=== PATIENT | female | born 1935 | race Caucasian/White ===

== ENCOUNTER 2016-12-04 08:27 | Inpatient (IN) | payer MEDICARE, MEDICAID ==
[2016-12-04] MEDS ORDERED: Albuterol/Ipratropium NEB.SOL* Albuterol 2.5 MG/Ipratropium 0.5 MG 3 ML INH ONE (08:44)
[2016-12-04 09:05] LABS: Hematocrit 43 % (35-47); Hemoglobin 14.6 g/dl (12.0-16.0); Mean Corpuscular HGB Conc 34 g/dl (31-36); Mean Corpuscular Hemoglobin 27 pg (27-31); Mean Corpuscular Volume 80 fL (80-97); Mean Platelet Volume 9 um3 (7.4-10.4); Red Blood Count 5.37 10^6/ul (4.0-5.4); Red Cell Distribution Width 16 % (10.5-15); White Blood Count 9.4 10^3/ul (3.5-10.8)
[2016-12-04 09:21] LABS: Albumin 3.6 g/dL (3.2-5.2); BUN/Creatinine Ratio 13.1 (8-20); C Reactive Protein 29.18 mg/L (< 5.00); EGFR African American 84.1 (>60); EGFR Non-African American 65.4 (>60); Total Bilirubin 0.6 mg/dL (0.2-1.0); Total Protein 6.6 g/dL (6.4-8.9)
--- NOTE | 2016-12-04 09:22 | RAD ---
Indication: Cough, shortness of breath, question pneumonia. Atrial fibrillation. History of tobacco use. Comparison: August 04, 2016 chest radiograph and September 28, 2015 CT. Technique: Upright AP 0905 hours Report: Mildly elevated lung volumes. Mild to moderate diffuse prominence of the interstitial markings without change. Negative for pleural effusion or pneumothorax. Mild cardiomegaly based on correlation with prior CT. Unremarkable central pulmonary vasculature and mediastinal contours. IMPRESSION: The constellation of findings is most consistent with chronic obstructive pulmonary disease given history of tobacco use. No acute cardiopulmonary process evident.
[2016-12-04 09:23] LABS: Troponin I 0.01 ng/mL (<0.04)
[2016-12-04] MEDS ORDERED: methylPREDNISolone 125 MG* 2 ML VIAL IV ONE (09:26)
[2016-12-04] MEDS: NS 0.9% 1000 ML* 3,000 ML IV ONE ×2 (09:50→10:57)
[2016-12-04 10:04] LABS: Urine Bilirubin Negative (Negative); Urine Glucose Negative (Negative); Urine Nitrite Negative (Negative)
[2016-12-04 10:20] LABS: Potassium 3.6 mmol/L (3.5-5.0)
[2016-12-04] MEDS ORDERED: Oseltamivir CAP* 75 MG PO ONE (10:23)
--- NOTE | 2016-12-04 10:44 | ED ---
Rudolph Samayoa Matthew, scribed for Sp Lama MD on 12/04/16 at 0845 . Complex/Multi-Sys Presentation - HPI Summary HPI Summary: A 81 y/o female presents to the ED by EMS for generalized weakness since a week ago. Associated symptoms include cough, chest pain w/ coughing, chills, sore throat, rhinorrhea, diarrhea 2-3 days, diffuse body aches, and headaches intermittently for the past week. The patient denies fever, vomiting, decreased appetite, abdominal pain, pedal edema, and recent Abx use. The patient states that she has chronic SOB. The patient is not on home oxygen and shes on blood thinners. The patient did not receive her flu shot this year. She lives in assisted living at [facility]. - History Of Current Complaint Chief Complaint: EDWeakness Time Seen by Provider: 12/04/16 08:30 Hx Obtained From: Patient Onset/Duration: Gradual Onset, Lasting Weeks - 1, Still Present Timing: Constant Severity Currently: Moderate Severity Initially: Moderate Location: Pain At: - Diffuse body aches Associated Signs And Symptoms: Positive: Weakness - general, Headache, Cough, Wheezing, Diarrhea - since 2-3 days ago, Other - Lightheadedness; Sore throat; Rhinorrhea; Chest pain w/ cough. Negative: Chest Pain, Vomiting, Abdominal Pain , Fever - Allergies/Home Medications Allergies/Adverse Reactions: Allergies Allergy/AdvReac Type Severity Reaction Status Date / Time Clonidine Allergy Unknown Verified 08/04/16 08:27 Reaction Details PMH/Surg Hx/FS Hx/Imm Hx Endocrine/Hematology History: Denies: Hx Anticoagulant Therapy, Hx Diabetes, Hx Thyroid Disease Cardiovascular History: Reports: Hx Hypercholesterolemia, Hx Hypertension, Other Cardiovascular Problems/Disorders - Afib Denies: Hx Pacemaker/ICD Respiratory History: Denies: Hx Asthma, Hx Chronic Obstructive Pulmonary Disease (COPD) GI History: Reports: Hx Diverticulosis, Hx Gastroesophageal Reflux Disease, Hx Obstructive Bowel, Other GI Disorders - Cdiff after bowel resection April 2012 History: Reports: Other Problems/Disorders - HX BLADDER FISTULA Denies: Hx Renal Disease Musculoskeletal History: Reports: Hx Back Problems, Hx Bursitis, Other Musculoskeletal History - bilat hip replacements Sensory History: Reports: Hx Contacts or Glasses, Hx Deafness - [place], Hx Hearing Aid, Hx Hearing Problem Opthamlomology History: Reports: Hx Contacts or Glasses Neurological History: Reports: Hx Dementia - dementia vs. 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 Infectious Disease History: Reports: Hx Clostridium Difficile Denies: Hx Hepatitis, Hx Human Immunodeficiency Virus (HIV), Traveled Outside the [place] in Last 30 Days - Family History Known Family History: Positive: Other - etOH abuse - brother - Social History Alcohol Use: None Hx Substance Use: No Substance Use Type: Reports: Prescribed Substance Use Comment - Amount & Last Used: Has overdosed on prescription narcotics Hx Tobacco Use: Yes Smoking Status (MU): Former Smoker Type: Cigarettes Amount Used/How Often: 2-3 Cigarettes/day Have You Smoked in the Last Year: No Review of Systems Positive: Chills, Fatigue. Negative: Fever Eyes: Negative ENT: Other - Rhinorrhea Positive: Sore Throat Positive: Chest Pain - w/ cough Positive: Shortness Of Breath - chronically , Cough Positive: Diarrhea. Negative: Abdominal Pain, Vomiting Genitourinary: Negative Positive: Myalgia - Diffuse bodyaches Skin: Negative Positive: Headache, Weakness - general Psychological: Normal All Other Systems Reviewed And Are Negative: Yes Physical Exam - Summary Physical Exam Summary: The patient is well-nourished in no acute distress and in no acute pain. The patient has decreased skin turgor. No cyanosis noted. HEENT: The head is normocephalic and atraumatic. The pupils are equal and reactive. The conjunctivae are clear and without drainage. Nares reveal rhinorrhea. Mouth reveals dry mucous membranes and the throat is without erythema and exudate. The external ears are intact. The ear canals are patent and without drainage. The tympanic membranes are intact. Neck is supple with full range of motion and non-tender. There are no carotid bruits. There is no neck vein distension. Respiratory: Chest is non-tender. The patient has diffuse wheezing. Cardiovascular: Heart is irregular rate and rhythm. There is no murmur or rub auscultated. Pulses are symmetrical and equal. Abdomen: The abdomen is soft and non-tender. There are normal bowel sounds heard in all four quadrants and there is no organomegaly palpated. Musculoskeletal: There is no back pain noted. Extremities are non-tender with full range of motion. Unable to assess cap refill. There is no calf tenderness elicited. Pitting edema of the LE Neurological: Patient is alert and oriented to person, place and time. The patient has symmetrical motor strength in all four extremities. Cranial nerves are grossly intact. Deep tendon reflexes are symmetrical and equal in all four extremities. Psychiatric: The patient has an appropriate affect and does not exhibit any anxiety or depression. Triage Information Reviewed: Yes Vital Signs On Initial Exam: Initial Vitals Temp Pulse Resp BP Pulse Ox 98.6 F 100 20 151/75 97 12/04/16 08:35 12/04/16 08:35 12/04/16 08:35 12/04/16 08:35 12/04/16 08:35 Vital Signs Reviewed: Yes Diagnostics - Vital Signs Vital Signs Temp Pulse Resp BP Pulse Ox 12/04/16 10:12 98 23 136/64 96 12/04/16 10:09 102 25 100 12/04/16 08:35 98.6 F 100 20 151/75 97 - Laboratory Lab Results: Lab Results 12/04/16 12/04/16 12/04/16 Range/Units 08:50 08:50 08:50 WBC 9.4 (3.5-10.8) 10^3/ul RBC 5.37 (4.0-5.4) 10^6/ul Hgb 14.6 (12.0-16.0) g/dl Hct 43 (35-47) % MCV 80 (80-97) fL MCH 27 (27-31) pg MCHC 34 (31-36) g/dl RDW 16 H (10.5-15) % Plt Count 173 (150-450) 10^3/ul MPV 9 (7.4-10.4) um3 Neut % (Auto) 87.6 H (38-83) % Lymph % (Auto) 5.1 L (25-47) % Delta % (Auto) 6.7 (1-9) % Eos % (Auto) 0.2 (0-6) % Baso % (Auto) 0.4 (0-2) % Absolute Neuts (auto) 8.3 H (1.5-7.7) 10^3/ul Absolute Lymphs (auto) 0.5 L (1.0-4.8) 10^3/ul Absolute Monos (auto) 0.6 (0-0.8) 10^3/ul Absolute Eos (auto) 0 (0-0.6) 10^3/ul Absolute Basos (auto) 0 (0-0.2) 10^3/ul Absolute Nucleated RBC 0 10^3/ul Nucleated RBC % 0 INR (Anticoag Therapy) 1.19 H (0.89-1.11) APTT 23.9 L (26.0-36.3) seconds Sodium 132 L (133-145) mmol/L Potassium 3.6 (3.5-5.0) mmol/L Chloride 100 L (101-111) mmol/L Carbon Dioxide 26 (22-32) mmol/L Anion Gap 6 (2-11) mmol/L BUN 11 (6-24) mg/dL Creatinine 0.84 (0.51-0.95) mg/dL Est GFR ( Amer) 84.1 (>60) Est GFR (Non-Af Amer) 65.4 (>60) BUN/Creatinine Ratio 13.1 (8-20) Glucose 84 (70-100) mg/dL Lactic Acid (0.5-2.0) mmol/L Calcium 9.0 (8.6-10.3) mg/dL Total Bilirubin 0.60 (0.2-1.0) mg/dL AST 40 H (13-39) U/L ALT 96 H (7-52) U/L Alkaline Phosphatase 69 (34-104) U/L Troponin I 0.01 (<0.04) ng/mL C-Reactive Protein 29.18 H (< 5.00) mg/L B-Natriuretic Peptide ( - 100) pg/mL Total Protein 6.6 (6.4-8.9) g/dL Albumin 3.6 (3.2-5.2) g/dL Globulin 3.0 (2-4) g/dL Albumin/Globulin Ratio 1.2 (1-3) Urine Color Urine Appearance Urine pH (5-9) Ur Specific [place] (1.010-1.030) Urine Protein (Negative) Urine Ketones (Negative) Urine Blood (Negative) Urine Nitrate (Negative) Urine Bilirubin (Negative) Urine Urobilinogen (Negative) Ur Leukocyte Esterase (Negative) Urine Glucose (Negative) Influenza A (Rapid) (Negative) Influenza B (Rapid) (Negative) 12/04/16 12/04/16 12/04/16 Range/Units 08:50 08:50 09:37 WBC (3.5-10.8) 10^3/ul RBC (4.0-5.4) 10^6/ul Hgb (12.0-16.0) g/dl Hct (35-47) % MCV (80-97) fL MCH (27-31) pg MCHC (31-36) g/dl RDW (10.5-15) % Plt Count (150-450) 10^3/ul MPV (7.4-10.4) um3 Neut % (Auto) (38-83) % Lymph % (Auto) (25-47) % Delta % (Auto) (1-9) % Eos % (Auto) (0-6) % Baso % (Auto) (0-2) % Absolute Neuts (auto) (1.5-7.7) 10^3/ul Absolute Lymphs (auto) (1.0-4.8) 10^3/ul Absolute Monos (auto) (0-0.8) 10^3/ul Absolute Eos (auto) (0-0.6) 10^3/ul Absolute Basos (auto) (0-0.2) 10^3/ul Absolute Nucleated RBC 10^3/ul Nucleated RBC % INR (Anticoag Therapy) (0.89-1.11) APTT (26.0-36.3) seconds Sodium (133-145) mmol/L Potassium (3.5-5.0) mmol/L Chloride (101-111) mmol/L Carbon Dioxide (22-32) mmol/L Anion Gap (2-11) mmol/L BUN (6-24) mg/dL Creatinine (0.51-0.95) mg/dL Est GFR ( Amer) (>60) Est GFR (Non-Af Amer) (>60) BUN/Creatinine Ratio (8-20) Glucose (70-100) mg/dL Lactic Acid 0.9 (0.5-2.0) mmol/L Calcium (8.6-10.3) mg/dL Total Bilirubin (0.2-1.0) mg/dL AST (13-39) U/L ALT (7-52) U/L Alkaline Phosphatase (34-104) U/L Troponin I (<0.04) ng/mL C-Reactive Protein (< 5.00) mg/L B-Natriuretic Peptide 77 ( - 100) pg/mL Total Protein (6.4-8.9) g/dL Albumin (3.2-5.2) g/dL Globulin (2-4) g/dL Albumin/Globulin Ratio (1-3) Urine Color Urine Appearance Urine pH (5-9) Ur Specific [place] (1.010-1.030) Urine Protein (Negative) Urine Ketones (Negative) Urine Blood (Negative) Urine Nitrate (Negative) Urine Bilirubin (Negative) Urine Urobilinogen (Negative) Ur Leukocyte Esterase (Negative) Urine Glucose (Negative) Influenza A (Rapid) Positive H (Negative) Influenza B (Rapid) Negative (Negative) 12/04/16 Range/Units 09:40 WBC (3.5-10.8) 10^3/ul RBC (4.0-5.4) 10^6/ul Hgb (12.0-16.0) g/dl Hct (35-47) % MCV (80-97) fL MCH (27-31) pg MCHC (31-36) g/dl RDW (10.5-15) % Plt Count (150-450) 10^3/ul MPV (7.4-10.4) um3 Neut % (Auto) (38-83) % Lymph % (Auto) (25-47) % Delta % (Auto) (1-9) % Eos % (Auto) (0-6) % Baso % (Auto) (0-2) % Absolute Neuts (auto) (1.5-7.7) 10^3/ul Absolute Lymphs (auto) (1.0-4.8) 10^3/ul Absolute Monos (auto) (0-0.8) 10^3/ul Absolute Eos (auto) (0-0.6) 10^3/ul Absolute Basos (auto) (0-0.2) 10^3/ul Absolute Nucleated RBC 10^3/ul Nucleated RBC % INR (Anticoag Therapy) (0.89-1.11) APTT (26.0-36.3) seconds Sodium (133-145) mmol/L Potassium (3.5-5.0) mmol/L Chloride (101-111) mmol/L Carbon Dioxide (22-32) mmol/L Anion Gap (2-11) mmol/L BUN (6-24) mg/dL Creatinine (0.51-0.95) mg/dL Est GFR ( Amer) (>60) Est GFR (Non-Af Amer) (>60) BUN/Creatinine Ratio (8-20) Glucose (70-100) mg/dL Lactic Acid (0.5-2.0) mmol/L Calcium (8.6-10.3) mg/dL Total Bilirubin (0.2-1.0) mg/dL AST (13-39) U/L ALT (7-52) U/L Alkaline Phosphatase (34-104) U/L Troponin I (<0.04) ng/mL C-Reactive Protein (< 5.00) mg/L B-Natriuretic Peptide ( - 100) pg/mL Total Protein (6.4-8.9) g/dL Albumin (3.2-5.2) g/dL Globulin (2-4) g/dL Albumin/Globulin Ratio (1-3) Urine Color Straw Urine Appearance Clear Urine pH 5.0 (5-9) Ur Specific [place] 1.005 L (1.010-1.030) Urine Protein Negative (Negative) Urine Ketones Trace H (Negative) Urine Blood Negative (Negative) Urine Nitrate Negative (Negative) Urine Bilirubin Negative (Negative) Urine Urobilinogen Negative (Negative) Ur Leukocyte Esterase Negative (Negative) Urine Glucose Negative (Negative) Influenza A (Rapid) (Negative) Influenza B (Rapid) (Negative) Result Diagrams: 12/04/16 08:50 12/04/16 08:50 Lab Statement: Any lab studies that have been ordered have been reviewed, and results considered in the medical decision making process. - Radiology CXR Xray Interpretation: No Acute Changes - IMPRESSION: The constellation of findings is most consistent with chronic obstructive pulmonary disease given history of tobacco use. No acute cardiopulmonary process evident. Radiology Interpretation Completed By: Radiologist - EKG 08:46 Cardiac Rate: Tachycardia - 102 bpm EKG Rhythm: Atrial Fibrillation ST Segment: Non-Specific - in the lateral and inferior leads EKG Interpretation: Controlled Rate Re-Evaluation - Re-Evaluation First Eval Re-Evaluation Time: 10:23 Change: Unchanged Comment: The patient continues to have wheezing. Will consult the hospitalist for possible admission. Complex Multi-Symp Course/Dx Assessment/Plan: A 81 y/o female presents to the ED by EMS for generalized weakness since a week ago. Associated symptoms include cough, chest pain w/ coughing, chills, sore throat, rhinorrhea, diarrhea 2-3 days, diffuse body aches, and headaches intermittently for the past week. The patient denies fever , vomiting, decreased appetite, abdominal pain, pedal edema, and recent Abx use. Labs were reviewed. The patient tested positive for influenza A. CXR shows chronic obstructive pulmonary disease given history of tobacco use and no acute cardiopulmonary process evident. EKG shows AFib at 102 bpm with non-specific ST changes in the lateral and inferior leads. Discussed the case with Dr. Lucero who will admit the patient into his services. - Diagnoses Differential Diagnoses/HQI/PQRI: Metabolic Abnormality, Sepsis, Urinary Tract Infection, Other - copd, influenza, chronic pain, atrial fibrillation Provider Diagnoses: Dyspnea, Influenza, COPD (chronic obstructive pulmonary disease), Chronic pain - Physician Notifications Discussed Care Of Patient With: Dr. Lucero (Hospitalist) at 10:30 -- Notified of patient's history and will admit the patient into his services. Discharge - Discharge Plan Condition: Stable Disposition: ADMITTED TO [facility] documentation as recorded by the Rudolph lópez Matthew accurately reflects the service I personally performed and the decisions made by , Sp Lama MD.
[2016-12-04] MEDS ORDERED: Acetaminophen TAB* 325 MG PO PRN (11:28)
[2016-12-04] MEDS ORDERED: Ondansetron INJ* 2 MG/ML VIAL IV PRN (11:28)
[2016-12-04] MEDS ORDERED: NS 0.9% 1000 ML* 1,000 ML IV SCH (11:30)
[2016-12-04] MEDS ORDERED: Albuterol 2.5 MG/3 ML NEB.SOL* (0.083%) INH PRN (11:46)
[2016-12-04] MEDS: Albuterol/Ipratropium NEB.SOL* Albuterol 2.5 MG/Ipratropium 0.5 MG 3 ML INH SCH ×3 (12:28→21:40)
[2016-12-04] MEDS: Diltiazem TAB* 60 MG PO SCH ×2 (12:35→17:34)
[2016-12-04] MEDS: cefTRIAXone VIAL(*) 1,000 MG in NS 0.9% 50 ML* 50 ML IVPB SCH (12:37)
[2016-12-04] MEDS: Azithromycin IV(*) 500 MG in NS 0.9% 250 ML* 250 ML IVPB SCH (12:38)
--- NOTE | 2016-12-04 14:55 | RAD ---
Indication: LEFT knee pain post fall. Comparison: No relevant prior exams available on the [facility] PACS. Technique: AP and crosstable lateral views LEFT knee Report: Small suprapatellar joint effusion. Negative for fracture or malalignment. Chondrocalcinosis at the bilateral menisci. Negative for significant joint space narrowing. Diffuse soft tissue edema and skeletal muscle atrophy. IMPRESSION: Small joint effusion. Negative for fracture. 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
--- NOTE | 2016-12-04 15:10 | RAD ---
Indication: Pain following fall. Comparison: LEFT knee and ankle of the same date. Technique: AP and lateral views LEFT lower leg. Report: Bone density appears decreased throughout. No fracture evident. Chondrocalcinosis noted at the medial and lateral menisci as described in the dedicated knee report. Nonfocal soft tissue swelling. IMPRESSION: Negative for fracture.
--- NOTE | 2016-12-04 15:12 | RAD ---
Indication: Pain post fall. Comparison: No relevant prior exams available on the [facility] PACS. Technique: AP, and lateral views LEFT ankle. Report: Bone density appears decreased throughout. No fracture evident. The posterior margin of the calcaneal tuberosity is incompletely included in the [id number]. Normal articular alignment. Nonfocal soft tissue edema. IMPRESSION: Negative for fracture.
[2016-12-04] MEDS: Gabapentin CAP(*) 300 MG PO SCH ×3 (16:23→21:23)
[2016-12-04] MEDS: Venlafaxine EXT RELEASE CAP* 75 MG PO SCH (17:35)
--- NOTE | 2016-12-04 18:35 | RAD ---
INDICATION: LEFT lower extremity pain and edema. COMPARISON: May 14, 2010 TECHNIQUE: Santiago scale, color Doppler, and spectral analysis of the deep veins of the LEFT lower extremity. Vessel compression, phasicity, and augmentation assessed. REPORT: The LEFT common femoral, great saphenous, profunda femoral, femoral, popliteal, peroneal, and posterior tibial veins are patent. Patency of the contralateral common femoral vein documented. IMPRESSION: No evidence for LEFT lower extremity deep venous thrombosis.
--- NOTE | 2016-12-04 19:08 | HP ---
HISTORY AND PHYSICAL: DATE OF ADMISSION: 12/04/16 PRIMARY CARE PROVIDER: Dr. Merino. ATTENDING PHYSICIAN WHILE IN THE HOSPITAL: Jhon Lucero MD * (report dictated by Adam Rosen NP). CHIEF COMPLAINT: 1. Cough. 2. Rhinorrhea. 3. Sore throat. 4. Arthralgias. HISTORY OF PRESENT ILLNESS: Ms. Rider is a 81-year-old female patient who carries a history of SVT, chronic pain, in addition to this has a history of atrial fibrillation, former smoker, history of anxiety, depression, dementia, question of COPD, and hypertension. She comes into the ER today from [facility] as she says the last couple of days she has not been feeling herself, she has been feeling weak, she is feeling fatigued, tired. She has had generalized malaise. She has been having difficulty with pain. She is having chills off and on, weakness and pain all over. She had a cough that now is productive of green sputum. She says she just was not feeling well. She got up today and was very weak. There was concern at [facility]. She was sent to the hospital. She has no reported fever, but she came in and was evaluated in the ER. It was noted that she tested positive for the flu and because of this, the hospitalist service was asked to evaluate for admission. PAST MEDICAL HISTORY: Significant for: 1. SVT. 2. Chronic pain. 3. SBO. 4. Hypertension. 5. GERD. 6. Anxiety. 7. Depression. 8. Dementia. 9. AFib. 10. History of COPD. PAST SURGICAL HISTORY: 1. She has had a laparoscopic cholecystectomy. 2. Bilateral total hip arthroplasty. 3. Hysterectomy. 4. Exploratory laparotomy with lysis of adhesions x2. HOME MEDICATIONS: According to her list at [facility] include: 1. Systane eye gel, left eye, at bedtime as needed. 2. Guaifenesin 15 cc p.o. every 6 hours as needed. 3. Imodium 2 mg p.o. every 4 hours as needed. 4. Tylenol 650 mg p.o. every 4 hours as needed. 5. Senna 2 tabs p.o. at bedtime. 6. Remeron 7.5 mg p.o. at bedtime. 7. Neurontin 600 mg p.o. at bedtime. 8. Aricept 10 mg at bedtime. 9. Abilify 2 mg p.o. at bedtime. 10. Embeda 1 capsule p.o. b.i.d. 11. Oxycodone 10 mg p.o. every 6 hours. 12. Neurontin 300 mg p.o. t.i.d. 13. Xarelto 20 mg daily. 14. Famotidine 20 mg p.o. b.i.d. 15. Effexor 150 mg in the morning, 75 mg at night. 16. B12 at 1000 mcg p.o. daily. 17. Norvasc 5 mg daily. 18. Multivitamin 1 capsule p.o. b.i.d. 19. Wellbutrin 300 mg p.o. daily. 20. Diltiazem 180 mg p.o. daily. ALLERGIES TO MEDICATIONS: Include CLONIDINE. FAMILY HISTORY: Mother had CVA. Father had a history of CVA and COPD. SOCIAL HISTORY: She is a former smoker. Does not drink alcohol. Lives at [facility]. Surrogate decision maker is her daughter. REVIEW OF SYSTEMS: There is no documented fever. She denied having any significant weight change. There was no double vision. No ear discharge. There was rhinorrhea. There was sore throat. There was no chest pain. There is dyspnea on exertion. There was nausea with one episode of vomiting. No dysuria. No frequency. No loss of consciousness. No pruritus and no skin ulcerations. Review of 14 systems completed, all others negative. PHYSICAL EXAMINATION GENERAL: At this time, Ms. Rider is a 81-year-old female patient. She is chronically ill appearing. She is sitting in the ER stretcher. She does not appear to be in any acute distress. VITAL SIGNS: Blood pressure 136/64 with a pulse of 98, respirations 23, O2 sat 96%, and temperature 98.6. HEENT: Head: Atraumatic, normocephalic. Eyes: EOMs intact. Sclerae anicteric. Throat: Oral mucosa appears to be dry. No oropharyngeal erythema. NECK: Supple. LUNGS: She did have wheeze in the lower bases and rhonchi. She had equal diaphragmatic expansion. HEART: Sounds S1, S2. Irregularly irregular rate. No murmurs, rubs, or gallops. ABDOMEN: Soft, it was flat and nontender. Bowel sounds present. EXTREMITIES: Pulses 2+ throughout. She is able to move all 4 extremities, 5/5 strength. NEUROLOGIC: The patient is awake. She is alert and oriented x3. Tongue midline. Executive Assistant To President were equal. There were no gross focal deficits. SKIN: Grossly intact. LABORATORY DATA AND DIAGNOSTIC STUDIES: Today reveal a WBC of 9.4, RBC of 5.37 , hemoglobin 14.6, hematocrit of 43, platelet count 173. INR 1.19. PTT of 23.9. Sodium 132, potassium 3.6, chloride 100, bicarb 26, BUN 11, creatinine 0.84, glucose 84, lactic 0.9, calcium 9.0, total bili 0.6, AST 40, ALT 96, alk phos 69. Troponin 0.01. CRP of 29. Albumin of 3.6. Urine was negative with the exception that she had trace ketones. Rapid influenza was positive for influenza A. She had a chest x-ray obtained today and on my review, I did not appreciate any infiltrates. Radiology read it as constellation of findings most consistent with COPD given history of tobacco use. No acute cardiac process evident. She had an EKG obtained today, which showed atrial fibrillation and a rate of 107. She did have some depression in V4, 5, and 6 and also in leads 2 and 3, aVF. When I look back on her previous EKGs, this is similar. Old medical records were reviewed. ASSESSMENT AND PLAN: Ms. Rider is a 81-year-old female patient with multiple medical problems, coming into the ER today with complaints of cough, weakness, myalgia and on evaluation found to have influenza A. She will be admitted under inpatient status for: 1. Influenza A and I suspect this is probably the culprit of a majority of her symptoms. She is rhonchorous. In addition to this, does have some wheezing on exam, so I am going to put her on antibiotics as well because I am concerned that she would have a high potential for a bacterial infection on top of the flu , so I would like to go ahead and put her on antibiotics, Tamiflu, hydrate her, supportive care, and follow. 2. Chronic obstructive pulmonary disease with exacerbation: We will go ahead and put her on Dulera nebulizers around the clock for the time being. In addition to this, aggressive pulmonary toileting and I did put her on Rocephin and azithromycin. 3. Supraventricular tachycardia and history of atrial fibrillation: Her rate right now is in the 120s. She did not get diltiazem today. Because of the acute illness, I am not going to give her the extended release diltiazem. I gave her 60 mg q.6 of IR diltiazem with hold parameters. 4. Chronic pain: Continue medications as prescribed. 5. Small-bowel obstruction: Not an active issue. We will monitor. 6. Hypertension: Continue medications as prescribed. Blood pressure is in the 150s to 160s. We will continue to monitor. 7. Gastroesophageal reflux disease: Continue PPI therapy. 8. Anxiety and depression: Continue current medications. 9. Dementia: Supportive care. 10. DVT prophylaxis: She is on Xarelto. We will go ahead and continue this. 11. Fluids, electrolytes, and nutrition: She can have a heart healthy diet. 12. Code status: She wishes to be a DNR. She does have a DNR in the system. TIME SPENT: Time spent on the admission was 60 minutes; greater than half the time was spent [id number] with the patient obtaining my history and physical, other half of the time spent going over the plan of care with the patient and implementing plan of care. I did discuss the plan of care with my attending, Dr. Lucero; he is in agreement. ADAM ROSNE NP CC: Dr. Merino * [id number]/CPS #: [id number] [facility]
[2016-12-04] MEDS: Senna TAB PO SCH (21:20)
[2016-12-04] MEDS: Mirtazapine TAB* 15 MG PO SCH (21:20)
[2016-12-04] MEDS: Famotidine TAB* 20 MG PO SCH (21:20)
[2016-12-04] MEDS: Oseltamivir CAP* 75 MG PO SCH (21:20)
[2016-12-04] MEDS: Donepezil TAB* 5 MG PO SCH (21:21)
[2016-12-04] MEDS: ARIPiprazole TAB* 2 MG PO SCH (21:23)
[2016-12-04] MEDS: MORPHINE NALTREXONE PO SCH (21:24)
[2016-12-04] MEDS: Mometasone/Formoter 200/5 MDI INH SCH (21:42)
[2016-12-05] MEDS: Albuterol/Ipratropium NEB.SOL* Albuterol 2.5 MG/Ipratropium 0.5 MG 3 ML INH SCH ×6 (00:43→21:26)
[2016-12-05] MEDS: Diltiazem TAB* 60 MG PO SCH ×3 (00:52→13:06)
[2016-12-05] MEDS: Mometasone/Formoter 200/5 MDI INH SCH ×2 (07:34→21:30)
[2016-12-05 09:16] LABS: Hematocrit 42 % (35-47); Hemoglobin 13.9 g/dl (12.0-16.0); Mean Corpuscular HGB Conc 33 g/dl (31-36); Mean Corpuscular Hemoglobin 27 pg (27-31); Mean Corpuscular Volume 81 fL (80-97); Mean Platelet Volume 10 um3 (7.4-10.4); Red Blood Count 5.18 10^6/ul (4.0-5.4); Red Cell Distribution Width 17 % (10.5-15); White Blood Count 8.9 10^3/ul (3.5-10.8)
[2016-12-05] MEDS: buPROPion SR TAB.SR* 150 MG PO SCH (09:22)
[2016-12-05] MEDS: Venlafaxine EXT RELEASE CAP* 75 MG PO SCH ×2 (09:22→17:28)
[2016-12-05] MEDS: amLODIPine TAB* 5 MG PO SCH (09:23)
[2016-12-05] MEDS: Cyanocobalamin TAB* 500 MCG PO SCH (09:23)
[2016-12-05] MEDS: Gabapentin CAP(*) 300 MG PO SCH ×4 (09:23→21:55)
[2016-12-05] MEDS: Rivaroxaban TAB(*) 20 MG TAB PO SCH (09:23)
[2016-12-05] MEDS: Oseltamivir CAP* 75 MG PO SCH ×2 (09:23→21:56)
[2016-12-05] MEDS: Famotidine TAB* 20 MG PO SCH ×2 (09:23→21:55)
[2016-12-05] MEDS: MORPHINE NALTREXONE PO SCH ×2 (09:24→21:27)
[2016-12-05 09:33] LABS: BUN/Creatinine Ratio 12.1 (8-20); Blood Urea Nitrogen 7 mg/dL (6-24); CO2 Carbon Dioxide 27 mmol/L (22-32); Calcium 8.8 mg/dL (8.6-10.3); Chloride 101 mmol/L (101-111); EGFR Non-African American 100.3 (>60); Glucose 93 mg/dL (70-100); Sodium 139 mmol/L (133-145)
[2016-12-05] MEDS: oxyCODONE TAB* 5 MG TAB PO PRN (09:42)
[2016-12-05] MEDS: cefTRIAXone VIAL(*) 1,000 MG in NS 0.9% 50 ML* 50 ML IVPB SCH (11:27)
[2016-12-05] MEDS ORDERED: KCL 10 MEQ/50 ML IVPREMIX* 10 MEQ/50 ML BAG IV ONE (11:30)
[2016-12-05] MEDS ORDERED: Potassium Chlor TAB* 20 MEQ TAB.ER PO ONE (11:30)
[2016-12-05] MEDS: Azithromycin IV(*) 500 MG in NS 0.9% 250 ML* 250 ML IVPB SCH (12:03)
[2016-12-05] MEDS: Diltiazem CD CAP* 180 MG PO SCH (15:51)
--- NOTE | 2016-12-05 17:00 | PN ---
Subjective Date of Service: 12/05/16 Interval History: pt feels better. Denies SOB. C/o chronic R knee pain ever since her fall several months ago. Upset about need to stay one more day. Objective Active Medications: Acetaminophen (Tylenol Tab*) 650 mg PO Q4H PRN PRN Reason: FEVER/PAIN Albuterol (Ventolin 2.5 Mg/3 Ml Neb.Mitra*) 2.5 mg INH Q2H PRN PRN Reason: SOB/WHEEZING Albuterol/Ipratropium (Duoneb Neb.Mitra*) 1 neb INH Q4H DAJUAN Last Admin: 12/05/16 15:50 Dose: 1 neb Amlodipine Besylate (Norvasc Tab*) 5 mg PO DAILY [facility] Last Admin: 12/05/16 09:23 Dose: 5 mg Aripiprazole (Abilify Tab*) 2 mg PO BEDTIME [facility] Last Admin: 12/04/16 21:23 Dose: 2 mg Bupropion HCl (Wellbutrin Sr Tab*) 300 mg PO QAM [facility] Last Admin: 12/05/16 09:22 Dose: 300 mg Cyanocobalamin (Vitamin B12 Tab*) 1,000 mcg PO DAILY [facility] Last Admin: 12/05/16 09:23 Dose: 1,000 mcg Diltiazem HCl (Cardizem Cd Cap*) 180 mg PO DAILY [facility] Last Admin: 12/05/16 15:51 Dose: 180 mg Donepezil HCl (Aricept Tab*) 10 mg PO BEDTIME [facility] Last Admin: 12/04/16 21:21 Dose: 10 mg Famotidine (Pepcid Tab*) 20 mg PO BID [facility] Last Admin: 12/05/16 09:23 Dose: 20 mg Gabapentin (Neurontin Cap(*)) 300 mg PO TID [facility] Last Admin: 12/05/16 13:06 Dose: 300 mg Gabapentin (Neurontin Cap(*)) 600 mg PO BEDTIME [facility] Last Admin: 12/04/16 21:23 Dose: 600 mg Mirtazapine (Remeron Tab*) 7.5 mg PO BEDTIME [facility] Last Admin: 12/04/16 21:20 Dose: 7.5 mg Mometasone Furoate/Formoterol Fumar (Dulera 200/5 Mdi*) 2 puff INH BID [facility] Last Admin: 12/05/16 07:34 Dose: 2 puff (Morphine-Naltrexone [Embeda 20-0.8 Mg] 1 Cap) 1 cap PO BID [facility] Last Admin: 12/05/16 09:24 Dose: Not Given Ondansetron HCl (Zofran Inj*) 4 mg IV Q6H PRN PRN Reason: NAUSEA Oseltamivir Phosphate (Tamiflu Cap*) 75 mg PO BID [facility] Stop: 12/09/16 09:01 Last Admin: 12/05/16 09:23 Dose: 75 mg Oxycodone HCl (Roxycodone Tab*) 10 mg PO Q6H PRN PRN Reason: PAIN Last Admin: 12/05/16 09:42 Dose: 10 mg Prednisone (Deltasone Tab*) 50 mg PO DAILY [facility] Rivaroxaban (Xarelto (*)) 20 mg PO DAILY [facility] Last Admin: 12/05/16 09:23 Dose: 20 mg Senna (Senokot Tab*) 2 tab PO BEDTIME [facility] Last Admin: 12/04/16 21:20 Dose: 2 tab Venlafaxine HCl (Effexor Xr Cap*) 75 mg PO QPM [facility] Last Admin: 12/04/16 17:35 Dose: 75 mg Venlafaxine HCl (Effexor Xr Cap*) 150 mg PO QAM [facility] Last Admin: 12/05/16 09:22 Dose: 150 mg Vital Signs 12/04/16 12/04/16 12/04/16 18:07 18:23 20:00 Temperature Pulse Rate 95 Respiratory 18 17 20 Rate Blood Pressure (mmHg) O2 Sat by Pulse 93 96 Oximetry 12/04/16 12/04/16 12/04/16 20:02 21:23 21:43 Temperature 97.5 F Pulse Rate 89 94 Respiratory 16 18 20 Rate Blood Pressure 142/61 (mmHg) O2 Sat by Pulse 93 96 Oximetry 12/04/16 12/04/16 12/05/16 23:23 23:56 02:09 Temperature 98.5 F Pulse Rate 99 Respiratory 17 20 Rate Blood Pressure 144/75 (mmHg) O2 Sat by Pulse 100 96 Oximetry 12/05/16 12/05/16 12/05/16 04:03 07:14 07:38 Temperature 98.5 F 97.2 F Pulse Rate 92 75 85 Respiratory 20 18 16 Rate Blood Pressure 165/85 149/70 (mmHg) O2 Sat by Pulse 98 98 94 Oximetry 12/05/16 12/05/16 12/05/16 07:40 08:00 09:23 Temperature Pulse Rate 85 Respiratory 16 16 16 Rate Blood Pressure (mmHg) O2 Sat by Pulse 94 Oximetry 12/05/16 12/05/16 12/05/16 09:42 11:23 11:28 Temperature 97.7 F Pulse Rate 89 Respiratory 16 16 18 Rate Blood Pressure 130/73 (mmHg) O2 Sat by Pulse 96 Oximetry 12/05/16 12/05/16 12/05/16 11:39 11:42 13:06 Temperature Pulse Rate 86 Respiratory 14 16 16 Rate Blood Pressure (mmHg) O2 Sat by Pulse 98 Oximetry 12/05/16 12/05/16 12/05/16 15:06 15:30 15:53 Temperature 97.4 F Pulse Rate 79 88 Respiratory 16 18 16 Rate Blood Pressure 126/55 (mmHg) O2 Sat by Pulse 96 99 Oximetry 12/05/16 12/05/16 16:00 16:01 Temperature Pulse Rate 88 Respiratory 16 Rate Blood Pressure (mmHg) O2 Sat by Pulse 92 93 Oximetry Oxygen Devices in Use Now: None Appearance: 81 F in NAD, AAOx3, poor historian Eyes: No Scleral Icterus, PERRLA Ears/Nose/Mouth/Throat: NL Teeth, Lips, Gums, Mucous Membranes Moist Neck: NL Appearance and Movements; NL JVP, Trachea Midline Respiratory: Symmetrical Chest Expansion and Respiratory Effort, - - crackles at b/l bases and L mid lung. wheezing b/l mid lungs. Cardiovascular: - - irregular Abdominal: NL Sounds; No Tenderness; No Distention, No Hepatosplenomegaly Lymphatic: No Cervical Adenopathy Extremities: No Clubbing, Cyanosis, - - left knee with small effusion, nontender , no increased warmth Skin: No Nodules or Sclerosis Neurological: Alert and Oriented x 3, NL Muscle Strength and Tone Result Diagrams: 12/05/16 05:59 12/05/16 10:21 Additional Lab and Data: Lab Results 12/04/16 12/04/16 12/04/16 Range/Units 08:50 08:50 08:50 WBC 9.4 (3.5-10.8) 10^3/ul RBC 5.37 (4.0-5.4) 10^6/ul Hgb 14.6 (12.0-16.0) g/dl Hct 43 (35-47) % MCV 80 (80-97) fL MCH 27 (27-31) pg MCHC 34 (31-36) g/dl RDW 16 H (10.5-15) % Plt Count 173 (150-450) 10^3/ul MPV 9 (7.4-10.4) um3 Neut % (Auto) 87.6 H (38-83) % Lymph % (Auto) 5.1 L (25-47) % Pine % (Auto) 6.7 (1-9) % Eos % (Auto) 0.2 (0-6) % Baso % (Auto) 0.4 (0-2) % Absolute Neuts (auto) 8.3 H (1.5-7.7) 10^3/ul Absolute Lymphs (auto) 0.5 L (1.0-4.8) 10^3/ul Absolute Monos (auto) 0.6 (0-0.8) 10^3/ul Absolute Eos (auto) 0 (0-0.6) 10^3/ul Absolute Basos (auto) 0 (0-0.2) 10^3/ul Absolute Nucleated RBC 0 10^3/ul Nucleated RBC % 0 INR (Anticoag Therapy) 1.19 H (0.89-1.11) APTT 23.9 L (26.0-36.3) seconds Sodium 132 L (133-145) mmol/L Potassium 3.6 (3.5-5.0) mmol/L Chloride 100 L (101-111) mmol/L Carbon Dioxide 26 (22-32) mmol/L Anion Gap 6 (2-11) mmol/L BUN 11 (6-24) mg/dL Creatinine 0.84 (0.51-0.95) mg/dL Est GFR ( Amer) 84.1 (>60) Est GFR (Non-Af Amer) 65.4 (>60) BUN/Creatinine Ratio 13.1 (8-20) Glucose 84 (70-100) mg/dL Lactic Acid (0.5-2.0) mmol/L Calcium 9.0 (8.6-10.3) mg/dL Total Bilirubin 0.60 (0.2-1.0) mg/dL AST 40 H (13-39) U/L ALT 96 H (7-52) U/L Alkaline Phosphatase 69 (34-104) U/L Troponin I 0.01 (<0.04) ng/mL C-Reactive Protein 29.18 H (< 5.00) mg/L B-Natriuretic Peptide ( - 100) pg/mL Total Protein 6.6 (6.4-8.9) g/dL Albumin 3.6 (3.2-5.2) g/dL Globulin 3.0 (2-4) g/dL Albumin/Globulin Ratio 1.2 (1-3) Urine Color Urine Appearance Urine pH (5-9) Ur Specific [place] (1.010-1.030) Urine Protein (Negative) Urine Ketones (Negative) Urine Blood (Negative) Urine Nitrate (Negative) Urine Bilirubin (Negative) Urine Urobilinogen (Negative) Ur Leukocyte Esterase (Negative) Urine Glucose (Negative) Influenza A (Rapid) (Negative) Influenza B (Rapid) (Negative) 12/04/16 12/04/16 12/04/16 Range/Units 08:50 08:50 09:37 WBC (3.5-10.8) 10^3/ul RBC (4.0-5.4) 10^6/ul Hgb (12.0-16.0) g/dl Hct (35-47) % MCV (80-97) fL MCH (27-31) pg MCHC (31-36) g/dl RDW (10.5-15) % Plt Count (150-450) 10^3/ul MPV (7.4-10.4) um3 Neut % (Auto) (38-83) % Lymph % (Auto) (25-47) % [place] % (Auto) (1-9) % Eos % (Auto) (0-6) % Baso % (Auto) (0-2) % Absolute Neuts (auto) (1.5-7.7) 10^3/ul Absolute Lymphs (auto) (1.0-4.8) 10^3/ul Absolute Monos (auto) (0-0.8) 10^3/ul Absolute Eos (auto) (0-0.6) 10^3/ul Absolute Basos (auto) (0-0.2) 10^3/ul Absolute Nucleated RBC 10^3/ul Nucleated RBC % INR (Anticoag Therapy) (0.89-1.11) APTT (26.0-36.3) seconds Sodium (133-145) mmol/L Potassium (3.5-5.0) mmol/L Chloride (101-111) mmol/L Carbon Dioxide (22-32) mmol/L Anion Gap (2-11) mmol/L BUN (6-24) mg/dL Creatinine (0.51-0.95) mg/dL Est GFR ( Amer) (>60) Est GFR (Non-Af Amer) (>60) BUN/Creatinine Ratio (8-20) Glucose (70-100) mg/dL Lactic Acid 0.9 (0.5-2.0) mmol/L Calcium (8.6-10.3) mg/dL Total Bilirubin (0.2-1.0) mg/dL AST (13-39) U/L ALT (7-52) U/L Alkaline Phosphatase (34-104) U/L Troponin I (<0.04) ng/mL C-Reactive Protein (< 5.00) mg/L B-Natriuretic Peptide 77 ( - 100) pg/mL Total Protein (6.4-8.9) g/dL Albumin (3.2-5.2) g/dL Globulin (2-4) g/dL Albumin/Globulin Ratio (1-3) Urine Color Urine Appearance Urine pH (5-9) Ur Specific [place] (1.010-1.030) Urine Protein (Negative) Urine Ketones (Negative) Urine Blood (Negative) Urine Nitrate (Negative) Urine Bilirubin (Negative) Urine Urobilinogen (Negative) Ur Leukocyte Esterase (Negative) Urine Glucose (Negative) Influenza A (Rapid) Positive H (Negative) Influenza B (Rapid) Negative (Negative) 12/04/16 Range/Units 09:40 WBC (3.5-10.8) 10^3/ul RBC (4.0-5.4) 10^6/ul Hgb (12.0-16.0) g/dl Hct (35-47) % MCV (80-97) fL MCH (27-31) pg MCHC (31-36) g/dl RDW (10.5-15) % Plt Count (150-450) 10^3/ul MPV (7.4-10.4) um3 Neut % (Auto) (38-83) % Lymph % (Auto) (25-47) % [place] % (Auto) (1-9) % Eos % (Auto) (0-6) % Baso % (Auto) (0-2) % Absolute Neuts (auto) (1.5-7.7) 10^3/ul Absolute Lymphs (auto) (1.0-4.8) 10^3/ul Absolute Monos (auto) (0-0.8) 10^3/ul Absolute Eos (auto) (0-0.6) 10^3/ul Absolute Basos (auto) (0-0.2) 10^3/ul Absolute Nucleated RBC 10^3/ul Nucleated RBC % INR (Anticoag Therapy) (0.89-1.11) APTT (26.0-36.3) seconds Sodium (133-145) mmol/L Potassium (3.5-5.0) mmol/L Chloride (101-111) mmol/L Carbon Dioxide (22-32) mmol/L Anion Gap (2-11) mmol/L BUN (6-24) mg/dL Creatinine (0.51-0.95) mg/dL Est GFR ( Amer) (>60) Est GFR (Non-Af Amer) (>60) BUN/Creatinine Ratio (8-20) Glucose (70-100) mg/dL Lactic Acid (0.5-2.0) mmol/L Calcium (8.6-10.3) mg/dL Total Bilirubin (0.2-1.0) mg/dL AST (13-39) U/L ALT (7-52) U/L Alkaline Phosphatase (34-104) U/L Troponin I (<0.04) ng/mL C-Reactive Protein (< 5.00) mg/L B-Natriuretic Peptide ( - 100) pg/mL Total Protein (6.4-8.9) g/dL Albumin (3.2-5.2) g/dL Globulin (2-4) g/dL Albumin/Globulin Ratio (1-3) Urine Color Straw Urine Appearance Clear Urine pH 5.0 (5-9) Ur Specific [place] 1.005 L (1.010-1.030) Urine Protein Negative (Negative) Urine Ketones Trace H (Negative) Urine Blood Negative (Negative) Urine Nitrate Negative (Negative) Urine Bilirubin Negative (Negative) Urine Urobilinogen Negative (Negative) Ur Leukocyte Esterase Negative (Negative) Urine Glucose Negative (Negative) Influenza A (Rapid) (Negative) Influenza B (Rapid) (Negative) Assess/Plan/Problems-Billing Assessment: 81 yo F with h/o anxiety, chronic pain, COPD (not on inhalers or 02 at home), A. fib (on Xarelto), chronic pain presents with Influenza A and COPD exacerbation. - Patient Problems (1) Influenza A Comment: Cont Tamilfu (2) COPD exacerbation Comment: Will start Prednisone PO, cont inhalers. Still wheezing (3) Chronic pain Comment: cont oxycodone prn (4) Atrial fibrillation Comment: cont rivaroxaban at home, continue diltiazem. (5) DVT prophylaxis Comment: HSQ Status and Disposition: Inpatient.
[2016-12-05] MEDS: predniSONE TAB* 50 MG PO SCH (17:28)
[2016-12-05] MEDS: Mirtazapine TAB* 15 MG PO SCH (21:54)
[2016-12-05] MEDS: ARIPiprazole TAB* 2 MG PO SCH (21:54)
[2016-12-05] MEDS: Senna TAB PO SCH (21:55)
[2016-12-05] MEDS: Donepezil TAB* 5 MG PO SCH (21:55)
[2016-12-06] MEDS: Albuterol/Ipratropium NEB.SOL* Albuterol 2.5 MG/Ipratropium 0.5 MG 3 ML INH SCH ×4 (01:32→14:14)
[2016-12-06 05:19] LABS: BUN/Creatinine Ratio 19.1 (8-20); Calcium 9.3 mg/dL (8.6-10.3); EGFR African American 107.3 (>60); EGFR Non-African American 83.5 (>60)
[2016-12-06] MEDS: Omeprazole CAP* 20 MG PO SCH (05:45)
[2016-12-06] MEDS ORDERED: LORazepam INJ* 2 MG/ML 1 ML VIAL IV PUSH ONE (07:00)
[2016-12-06] MEDS: MORPHINE NALTREXONE PO SCH ×2 (08:32→23:14)
[2016-12-06] MEDS: Famotidine TAB* 20 MG PO SCH ×2 (08:39→22:04)
[2016-12-06] MEDS: Oseltamivir CAP* 75 MG PO SCH ×2 (08:39→22:00)
[2016-12-06] MEDS: Rivaroxaban TAB(*) 20 MG TAB PO SCH (08:40)
[2016-12-06] MEDS: buPROPion SR TAB.SR* 150 MG PO SCH (08:40)
[2016-12-06] MEDS: amLODIPine TAB* 5 MG PO SCH (08:40)
[2016-12-06] MEDS: Venlafaxine EXT RELEASE CAP* 75 MG PO SCH ×2 (08:40→17:33)
[2016-12-06] MEDS: predniSONE TAB* 50 MG PO SCH (08:40)
[2016-12-06] MEDS: Cyanocobalamin TAB* 500 MCG PO SCH (08:40)
[2016-12-06] MEDS: Diltiazem CD CAP* 180 MG PO SCH (08:40)
[2016-12-06] MEDS: Gabapentin CAP(*) 300 MG PO SCH ×4 (08:40→22:02)
[2016-12-06] MEDS: Mometasone/Formoter 200/5 MDI INH SCH ×2 (10:21→23:08)
--- NOTE | 2016-12-06 14:45 | PN ---
Subjective Date of Service: 12/06/16 Interval History: Pt is feeling better but still weak. She felt very shaky when she was up and walking earlier today. She denies SOB. Objective Active Medications: Acetaminophen (Tylenol Tab*) 650 mg PO Q4H PRN PRN Reason: FEVER/PAIN Albuterol (Ventolin 2.5 Mg/3 Ml Neb.Mitra*) 2.5 mg INH Q2H PRN PRN Reason: SOB/WHEEZING Albuterol (Ventolin 2.5 Mg/3 Ml Neb.Mitra*) 2.5 mg INH [id number] AWAKE COUNTS INCLUDE 234 BEDS AT [facility] Amlodipine Besylate (Norvasc Tab*) 5 mg PO DAILY COUNTS INCLUDE 234 BEDS AT [facility] Last Admin: 12/06/16 08:40 Dose: 5 mg Aripiprazole (Abilify Tab*) 2 mg PO BEDTIME COUNTS INCLUDE 234 BEDS AT [facility] Last Admin: 12/05/16 21:54 Dose: 2 mg Bupropion HCl (Wellbutrin Sr Tab*) 300 mg PO QAM COUNTS INCLUDE 234 BEDS AT [facility] Last Admin: 12/06/16 08:40 Dose: 300 mg Cyanocobalamin (Vitamin B12 Tab*) 1,000 mcg PO DAILY COUNTS INCLUDE 234 BEDS AT [facility] Last Admin: 12/06/16 08:40 Dose: 1,000 mcg Diltiazem HCl (Cardizem Cd Cap*) 180 mg PO DAILY COUNTS INCLUDE 234 BEDS AT [facility] Last Admin: 12/06/16 08:40 Dose: 180 mg Donepezil HCl (Aricept Tab*) 10 mg PO BEDTIME COUNTS INCLUDE 234 BEDS AT [facility] Last Admin: 12/05/16 21:55 Dose: 10 mg Famotidine (Pepcid Tab*) 20 mg PO BID COUNTS INCLUDE 234 BEDS AT [facility] Last Admin: 12/06/16 08:39 Dose: 20 mg Gabapentin (Neurontin Cap(*)) 300 mg PO TID COUNTS INCLUDE 234 BEDS AT [facility] Last Admin: 12/06/16 13:55 Dose: 300 mg Gabapentin (Neurontin Cap(*)) 600 mg PO BEDTIME COUNTS INCLUDE 234 BEDS AT [facility] Last Admin: 12/05/16 21:55 Dose: 600 mg Mirtazapine (Remeron Tab*) 7.5 mg PO BEDTIME COUNTS INCLUDE 234 BEDS AT [facility] Last Admin: 12/05/16 21:54 Dose: 7.5 mg Mometasone Furoate/Formoterol Fumar (Dulera 200/5 Mdi*) 2 puff INH BID COUNTS INCLUDE 234 BEDS AT [facility] Last Admin: 12/06/16 10:21 Dose: 2 puff (Morphine-Naltrexone [Embeda 20-0.8 Mg] 1 Cap) 1 cap PO BID COUNTS INCLUDE 234 BEDS AT [facility] Last Admin: 12/06/16 08:32 Dose: Not Given Omeprazole (Prilosec Cap*) 20 mg PO 0600 COUNTS INCLUDE 234 BEDS AT [facility] Last Admin: 12/06/16 05:45 Dose: 20 mg Ondansetron HCl (Zofran Inj*) 4 mg IV Q6H PRN PRN Reason: NAUSEA Oseltamivir Phosphate (Tamiflu Cap*) 75 mg PO BID COUNTS INCLUDE 234 BEDS AT [facility] Stop: 12/09/16 09:01 Last Admin: 12/06/16 08:39 Dose: 75 mg Oxycodone HCl (Roxycodone Tab*) 10 mg PO Q6H PRN PRN Reason: PAIN Last Admin: 12/05/16 09:42 Dose: 10 mg Potassium Chloride (Klor Con Er Tab*) 40 meq PO Q4H COUNTS INCLUDE 234 BEDS AT [facility] Stop: 12/06/16 18:46 Prednisone (Deltasone Tab*) 40 mg PO DAILY WITH MEAL COUNTS INCLUDE 234 BEDS AT THE [facility] Rivaroxaban (Xarelto (*)) 20 mg PO DAILY COUNTS INCLUDE 234 BEDS AT [facility] Last Admin: 12/06/16 08:40 Dose: 20 mg Senna (Senokot Tab*) 2 tab PO BEDTIME COUNTS INCLUDE 234 BEDS AT [facility] Last Admin: 12/05/16 21:55 Dose: 2 tab Venlafaxine HCl (Effexor Xr Cap*) 75 mg PO QPM COUNTS INCLUDE 234 BEDS AT [facility] Last Admin: 12/05/16 17:28 Dose: 75 mg Venlafaxine HCl (Effexor Xr Cap*) 150 mg PO QAM COUNTS INCLUDE 234 BEDS AT [facility] Last Admin: 12/06/16 08:40 Dose: 150 mg Vital Signs 12/05/16 12/05/16 12/05/16 15:06 15:30 15:53 Temperature 97.4 F Pulse Rate 79 88 Respiratory 16 18 16 Rate Blood Pressure 126/55 (mmHg) O2 Sat by Pulse 96 99 Oximetry 12/05/16 12/05/16 12/05/16 16:00 16:01 19:37 Temperature 97.4 F Pulse Rate 88 68 Respiratory 16 16 Rate Blood Pressure 125/78 (mmHg) O2 Sat by Pulse 92 93 97 Oximetry 12/05/16 12/05/16 12/05/16 20:00 21:31 21:55 Temperature Pulse Rate 90 Respiratory 18 20 16 Rate Blood Pressure (mmHg) O2 Sat by Pulse 97 96 Oximetry 12/05/16 12/06/1612/06/17 23:55 00:22 01:34 Temperature 98.3 F Pulse Rate 96 92 Respiratory 20 20 20 Rate Blood Pressure 135/76 (mmHg) O2 Sat by Pulse 98 94 Oximetry 12/06/16 12/06/16 12/06/16 03:37 05:11 07:15 Temperature 98.1 F Pulse Rate 96 95 Respiratory 20 20 20 Rate Blood Pressure 128/66 (mmHg) O2 Sat by Pulse 97 94 Oximetry 12/06/16 12/06/16 12/06/16 08:00 08:06 08:15 Temperature 98.1 F Pulse Rate 97 Respiratory 16 16 16 Rate Blood Pressure 136/83 (mmHg) O2 Sat by Pulse 100 100 Oximetry 12/06/16 12/06/16 12/06/16 08:40 10:23 10:24 Temperature Pulse Rate 97 97 Respiratory 16 16 16 Rate Blood Pressure (mmHg) O2 Sat by Pulse 100 100 Oximetry 12/06/16 12/06/16 12/06/16 11:33 13:55 14:15 Temperature 99.3 F Pulse Rate 96 96 Respiratory 16 18 18 Rate Blood Pressure 131/78 (mmHg) O2 Sat by Pulse 99 99 Oximetry Oxygen Devices in Use Now: None Appearance: Elderly female lying in bed, NAD Eyes: No Scleral Icterus Ears/Nose/Mouth/Throat: Mucous Membranes Moist Respiratory: Symmetrical Chest Expansion and Respiratory Effort, Clear to Auscultation Cardiovascular: NL Sounds; No Murmurs; No JVD, No Edema, - - mildly tachycardic , regular Abdominal: NL Sounds; No Tenderness; No Distention Extremities: No Clubbing, Cyanosis Skin: No Rash or Ulcers, No Nodules or Sclerosis Neurological: Alert and Oriented x 3 Result Diagrams: 12/05/16 05:59 12/06/16 04:25 Additional Lab and Data: Lab Results 12/04/16 12/04/16 12/04/16 Range/Units 08:50 08:50 08:50 WBC 9.4 (3.5-10.8) 10^3/ul RBC 5.37 (4.0-5.4) 10^6/ul Hgb 14.6 (12.0-16.0) g/dl Hct 43 (35-47) % MCV 80 (80-97) fL MCH 27 (27-31) pg MCHC 34 (31-36) g/dl RDW 16 H (10.5-15) % Plt Count 173 (150-450) 10^3/ul MPV 9 (7.4-10.4) um3 Neut % (Auto) 87.6 H (38-83) % Lymph % (Auto) 5.1 L (25-47) % [place] % (Auto) 6.7 (1-9) % Eos % (Auto) 0.2 (0-6) % Baso % (Auto) 0.4 (0-2) % Absolute Neuts (auto) 8.3 H (1.5-7.7) 10^3/ul Absolute Lymphs (auto) 0.5 L (1.0-4.8) 10^3/ul Absolute Monos (auto) 0.6 (0-0.8) 10^3/ul Absolute Eos (auto) 0 (0-0.6) 10^3/ul Absolute Basos (auto) 0 (0-0.2) 10^3/ul Absolute Nucleated RBC 0 10^3/ul Nucleated RBC % 0 INR (Anticoag Therapy) 1.19 H (0.89-1.11) APTT 23.9 L (26.0-36.3) seconds Sodium 132 L (133-145) mmol/L Potassium 3.6 (3.5-5.0) mmol/L Chloride 100 L (101-111) mmol/L Carbon Dioxide 26 (22-32) mmol/L Anion Gap 6 (2-11) mmol/L BUN 11 (6-24) mg/dL Creatinine 0.84 (0.51-0.95) mg/dL Est GFR ( Amer) 84.1 (>60) Est GFR (Non-Af Amer) 65.4 (>60) BUN/Creatinine Ratio 13.1 (8-20) Glucose 84 (70-100) mg/dL Lactic Acid (0.5-2.0) mmol/L Calcium 9.0 (8.6-10.3) mg/dL Total Bilirubin 0.60 (0.2-1.0) mg/dL AST 40 H (13-39) U/L ALT 96 H (7-52) U/L Alkaline Phosphatase 69 (34-104) U/L Troponin I 0.01 (<0.04) ng/mL C-Reactive Protein 29.18 H (< 5.00) mg/L B-Natriuretic Peptide ( - 100) pg/mL Total Protein 6.6 (6.4-8.9) g/dL Albumin 3.6 (3.2-5.2) g/dL Globulin 3.0 (2-4) g/dL Albumin/Globulin Ratio 1.2 (1-3) Urine Color Urine Appearance Urine pH (5-9) Ur Specific [place] (1.010-1.030) Urine Protein (Negative) Urine Ketones (Negative) Urine Blood (Negative) Urine Nitrate (Negative) Urine Bilirubin (Negative) Urine Urobilinogen (Negative) Ur Leukocyte Esterase (Negative) Urine Glucose (Negative) Influenza A (Rapid) (Negative) Influenza B (Rapid) (Negative) 12/04/16 12/04/16 12/04/16 Range/Units 08:50 08:50 09:37 WBC (3.5-10.8) 10^3/ul RBC (4.0-5.4) 10^6/ul Hgb (12.0-16.0) g/dl Hct (35-47) % MCV (80-97) fL MCH (27-31) pg MCHC (31-36) g/dl RDW (10.5-15) % Plt Count (150-450) 10^3/ul MPV (7.4-10.4) um3 Neut % (Auto) (38-83) % Lymph % (Auto) (25-47) % [place] % (Auto) (1-9) % Eos % (Auto) (0-6) % Baso % (Auto) (0-2) % Absolute Neuts (auto) (1.5-7.7) 10^3/ul Absolute Lymphs (auto) (1.0-4.8) 10^3/ul Absolute Monos (auto) (0-0.8) 10^3/ul Absolute Eos (auto) (0-0.6) 10^3/ul Absolute Basos (auto) (0-0.2) 10^3/ul Absolute Nucleated RBC 10^3/ul Nucleated RBC % INR (Anticoag Therapy) (0.89-1.11) APTT (26.0-36.3) seconds Sodium (133-145) mmol/L Potassium (3.5-5.0) mmol/L Chloride (101-111) mmol/L Carbon Dioxide (22-32) mmol/L Anion Gap (2-11) mmol/L BUN (6-24) mg/dL Creatinine (0.51-0.95) mg/dL Est GFR ( Amer) (>60) Est GFR (Non-Af Amer) (>60) BUN/Creatinine Ratio (8-20) Glucose (70-100) mg/dL Lactic Acid 0.9 (0.5-2.0) mmol/L Calcium (8.6-10.3) mg/dL Total Bilirubin (0.2-1.0) mg/dL AST (13-39) U/L ALT (7-52) U/L Alkaline Phosphatase (34-104) U/L Troponin I (<0.04) ng/mL C-Reactive Protein (< 5.00) mg/L B-Natriuretic Peptide 77 ( - 100) pg/mL Total Protein (6.4-8.9) g/dL Albumin (3.2-5.2) g/dL Globulin (2-4) g/dL Albumin/Globulin Ratio (1-3) Urine Color Urine Appearance Urine pH (5-9) Ur Specific [place] (1.010-1.030) Urine Protein (Negative) Urine Ketones (Negative) Urine Blood (Negative) Urine Nitrate (Negative) Urine Bilirubin (Negative) Urine Urobilinogen (Negative) Ur Leukocyte Esterase (Negative) Urine Glucose (Negative) Influenza A (Rapid) Positive H (Negative) Influenza B (Rapid) Negative (Negative) 12/04/16 Range/Units 09:40 WBC (3.5-10.8) 10^3/ul RBC (4.0-5.4) 10^6/ul Hgb (12.0-16.0) g/dl Hct (35-47) % MCV (80-97) fL MCH (27-31) pg MCHC (31-36) g/dl RDW (10.5-15) % Plt Count (150-450) 10^3/ul MPV (7.4-10.4) um3 Neut % (Auto) (38-83) % Lymph % (Auto) (25-47) % [place] % (Auto) (1-9) % Eos % (Auto) (0-6) % Baso % (Auto) (0-2) % Absolute Neuts (auto) (1.5-7.7) 10^3/ul Absolute Lymphs (auto) (1.0-4.8) 10^3/ul Absolute Monos (auto) (0-0.8) 10^3/ul Absolute Eos (auto) (0-0.6) 10^3/ul Absolute Basos (auto) (0-0.2) 10^3/ul Absolute Nucleated RBC 10^3/ul Nucleated RBC % INR (Anticoag Therapy) (0.89-1.11) APTT (26.0-36.3) seconds Sodium (133-145) mmol/L Potassium (3.5-5.0) mmol/L Chloride (101-111) mmol/L Carbon Dioxide (22-32) mmol/L Anion Gap (2-11) mmol/L BUN (6-24) mg/dL Creatinine (0.51-0.95) mg/dL Est GFR ( Amer) (>60) Est GFR (Non-Af Amer) (>60) BUN/Creatinine Ratio (8-20) Glucose (70-100) mg/dL Lactic Acid (0.5-2.0) mmol/L Calcium (8.6-10.3) mg/dL Total Bilirubin (0.2-1.0) mg/dL AST (13-39) U/L ALT (7-52) U/L Alkaline Phosphatase (34-104) U/L Troponin I (<0.04) ng/mL C-Reactive Protein (< 5.00) mg/L B-Natriuretic Peptide ( - 100) pg/mL Total Protein (6.4-8.9) g/dL Albumin (3.2-5.2) g/dL Globulin (2-4) g/dL Albumin/Globulin Ratio (1-3) Urine Color Straw Urine Appearance Clear Urine pH 5.0 (5-9) Ur Specific [place] 1.005 L (1.010-1.030) Urine Protein Negative (Negative) Urine Ketones Trace H (Negative) Urine Blood Negative (Negative) Urine Nitrate Negative (Negative) Urine Bilirubin Negative (Negative) Urine Urobilinogen Negative (Negative) Ur Leukocyte Esterase Negative (Negative) Urine Glucose Negative (Negative) Influenza A (Rapid) (Negative) Influenza B (Rapid) (Negative) Microbiology and Other Data: Microbiology 12/05/16 22:50 Gram Stain - Final Sputum Expectorated Sputum Culture - Preliminary No Growth Day 1 Assess/Plan/Problems-Billing Ms Rider 81 yo F with h/o anxiety, chronic pain, COPD (not on inhalers or 02 at home), A. fib (on Xarelto), chronic pain presents with Influenza A and COPD exacerbation. - Patient Problems (1) Influenza A Current Visit: Yes Status: Acute Code(s): J10.1 - FLU DUE TO OTH IDENT INFLUENZA VIRUS W OTH RESP MANIFEST SNOMED Code(s): 599414708 Comment: Pt is slowly improving. She is mildly tachycardic still. Possibly still related to flu/COPD exacerbation. Will continue current dose of diltiazem CD and monitor for improvement in her HR-if her HR fails to trend down would increase diltiazem CD to 240mg daily. Continue tamiflu to complete 5 full days of therapy. (2) COPD exacerbation Current Visit: Yes Status: Acute Code(s): J44.1 - CHRONIC OBSTRUCTIVE PULMONARY DISEASE W (ACUTE) EXACERBATION SNOMED Code(s): 972513499 Comment: No wheezing noted today. Continue prednisone though taper to 40mg tonight. Should be relatively rapid taper. (3) Atrial fibrillation Current Visit: Yes Status: Acute Onset Date: 01/16/15 Code(s): I48.91 - UNSPECIFIED ATRIAL FIBRILLATION SNOMED Code(s): 51417833 Comment: Continue diltiazem CD and xarelto. Mildy tachycardic but otherwise no issues. (4) Chronic pain Current Visit: Yes Status: Acute Code(s): G89.29 - OTHER CHRONIC PAIN SNOMED Code(s): 80814837 Comment: Continue home medication regimen. (5) Anxiety Current Visit: Yes Status: Chronic Onset Date: 12/23/14 Code(s): F41.9 - ANXIETY DISORDER, UNSPECIFIED SNOMED Code(s): 42463985 Comment: Continue abilify, remeron, wellbutrin and venlafaxine (6) DVT prophylaxis Current Visit: Yes Status: Acute Onset Date: 01/16/15 Code(s): IOQ6038 - SNOMED Code(s): 068007315 Comment: kinsey (7) DNR (do not resuscitate) Current Visit: Yes Status: Acute Status and Disposition: d/c home tomorrow
[2016-12-06] MEDS: Albuterol 2.5 MG/3 ML NEB.SOL* (0.083%) INH SCH ×2 (15:03→23:08)
[2016-12-06] MEDS: predniSONE TAB* 20 MG PO SCH (15:27)
[2016-12-06] MEDS: Potassium Chlor TAB* 20 MEQ TAB.ER PO SCH ×2 (15:27→17:33)
[2016-12-06] MEDS: Mirtazapine TAB* 15 MG PO SCH (21:58)
[2016-12-06] MEDS: Senna TAB PO SCH (22:00)
[2016-12-06] MEDS: ARIPiprazole TAB* 2 MG PO SCH (22:03)
[2016-12-06] MEDS: Donepezil TAB* 5 MG PO SCH (22:03)
[2016-12-07] MEDS: Albuterol 2.5 MG/3 ML NEB.SOL* (0.083%) INH SCH ×2 (01:00→07:53)
[2016-12-07 05:39] LABS: BUN/Creatinine Ratio 25.4 (8-20); Calcium 9.3 mg/dL (8.6-10.3); EGFR African American 109.2 (>60); EGFR Non-African American 84.9 (>60); Magnesium 1.8 mg/dL (1.9-2.7); Potassium 3.4 mmol/L (3.5-5.0)
[2016-12-07] MEDS: Omeprazole CAP* 20 MG PO SCH (05:40)
[2016-12-07] MEDS: Mometasone/Formoter 200/5 MDI INH SCH (07:54)
[2016-12-07 08:04] VITALS: BP 142/81
[2016-12-07] MEDS: Famotidine TAB* 20 MG PO SCH (08:30)
[2016-12-07] MEDS: buPROPion SR TAB.SR* 150 MG PO SCH (08:30)
[2016-12-07] MEDS: Cyanocobalamin TAB* 500 MCG PO SCH (08:31)
[2016-12-07] MEDS: predniSONE TAB* 20 MG PO SCH (08:31)
[2016-12-07] MEDS: amLODIPine TAB* 5 MG PO SCH (08:31)
[2016-12-07] MEDS: Diltiazem CD CAP* 180 MG PO SCH (08:31)
[2016-12-07] MEDS: Venlafaxine EXT RELEASE CAP* 75 MG PO SCH (08:31)
[2016-12-07] MEDS: Rivaroxaban TAB(*) 20 MG TAB PO SCH (08:31)
[2016-12-07] MEDS: Oseltamivir CAP* 75 MG PO SCH (08:31)
[2016-12-07] MEDS: oxyCODONE TAB* 5 MG TAB PO PRN (08:34)
[2016-12-07] MEDS: Gabapentin CAP(*) 300 MG PO SCH (08:34)
[2016-12-07] MEDS: MORPHINE NALTREXONE PO SCH (10:17)
--- NOTE | 2016-12-07 10:40 | PN ---
Subjective Date of Service: 12/07/16 Interval History: Ms. Rider states that she still feels a bit shaky and has some mild diarrhea. However, she reports being able to walk 1/[address] around the unit without significant shortness of breath. She denies chest pain. She denies nausea or abdominal pain. She feels comfortable with going home today. Objective Active Medications: Acetaminophen (Tylenol Tab*) 650 mg PO Q4H PRN Albuterol (Ventolin 2.5 Mg/3 Ml Neb.Mitra*) 2.5 mg INH Q2H PRN Albuterol (Ventolin 2.5 Mg/3 Ml Neb.Mitra*) 2.5 mg INH [id number] AWAKE DAJUAN Amlodipine Besylate (Norvasc Tab*) 5 mg PO DAILY DAJUAN Aripiprazole (Abilify Tab*) 2 mg PO BEDTIME DAJUAN Bupropion HCl (Wellbutrin Sr Tab*) 300 mg PO QAM DAJUAN Cyanocobalamin (Vitamin B12 Tab*) 1,000 mcg PO DAILY DAJUAN Diltiazem HCl (Cardizem Cd Cap*) 180 mg PO DAILY DAJUAN Donepezil HCl (Aricept Tab*) 10 mg PO BEDTIME DAJUAN Famotidine (Pepcid Tab*) 20 mg PO BID DAJUAN Gabapentin (Neurontin Cap(*)) 300 mg PO TID DAJUAN Gabapentin (Neurontin Cap(*)) 600 mg PO BEDTIME DAJUAN Mirtazapine (Remeron Tab*) 7.5 mg PO BEDTIME DAJUAN Mometasone Furoate/Formoterol Fumar (Dulera 200/5 Mdi*) 2 puff INH BID DAJUAN (Morphine-Naltrexone [Embeda 20-0.8 Mg] 1 Cap) 1 cap PO BID DAJUAN Omeprazole (Prilosec Cap*) 20 mg PO 0600 DAJUAN Ondansetron HCl (Zofran Inj*) 4 mg IV Q6H PRN Oseltamivir Phosphate (Tamiflu Cap*) 75 mg PO BID DAJUAN Oxycodone HCl (Roxycodone Tab*) 10 mg PO Q6H PRN Prednisone (Deltasone Tab*) 40 mg PO DAILY WITH MEAL DAJUAN Rivaroxaban (Xarelto (*)) 20 mg PO DAILY DAJUAN Senna (Senokot Tab*) 2 tab PO BEDTIME DAJUAN Venlafaxine HCl (Effexor Xr Cap*) 75 mg PO QPM DAJUAN Venlafaxine HCl (Effexor Xr Cap*) 150 mg PO QAM [facility] Vital Signs 12/06/16 12/06/16 12/06/16 11:33 13:55 14:15 Temperature 99.3 F Pulse Rate 96 96 Respiratory 16 18 18 Rate Blood Pressure 131/78 (mmHg) O2 Sat by Pulse 99 99 Oximetry 12/06/16 12/06/16 12/06/16 15:44 16:09 19:28 Temperature 98.5 F 98.5 F Pulse Rate 104 94 Respiratory 14 16 16 Rate Blood Pressure 135/65 134/72 (mmHg) O2 Sat by Pulse 96 100 Oximetry 12/06/16 12/06/16 12/06/16 19:47 22:01 22:02 Temperature Pulse Rate Respiratory 16 16 16 Rate Blood Pressure (mmHg) O2 Sat by Pulse Oximetry 12/07/16 12/07/16 12/07/16 00:01 00:02 00:08 Temperature 97.9 F Pulse Rate 98 Respiratory 16 16 16 Rate Blood Pressure 149/74 (mmHg) O2 Sat by Pulse 99 Oximetry 12/07/16 12/07/16 12/07/16 02:29 03:26 07:15 Temperature 97.4 F 98.3 F Pulse Rate 105 102 107 Respiratory 16 16 16 Rate Blood Pressure 146/78 142/81 (mmHg) O2 Sat by Pulse 97 97 100 Oximetry 12/07/16 12/07/16 12/07/16 07:56 08:05 08:34 Temperature Pulse Rate 95 Respiratory 20 20 20 Rate Blood Pressure (mmHg) O2 Sat by Pulse 96 Oximetry 12/07/16 10:17 Temperature Pulse Rate Respiratory 16 Rate Blood Pressure (mmHg) O2 Sat by Pulse Oximetry Oxygen Devices in Use Now: None Appearance: Elderly female lying in bed in NAD Respiratory: Symmetrical Chest Expansion and Respiratory Effort, - - Minimal expiratory crackles, clears with coughing Cardiovascular: NL Sounds; No Murmurs; No JVD, No Edema Abdominal: NL Sounds; No Tenderness; No Distention Extremities: No Edema Skin: No Rash or Ulcers Neurological: Alert and Oriented x 3, NL Muscle Strength and Tone Nutrition: Taking PO's Result Diagrams: 12/05/16 05:59 12/07/16 04:23 Additional Lab and Data: Lab Results 12/04/16 12/04/16 12/04/16 Range/Units 08:50 08:50 08:50 WBC 9.4 (3.5-10.8) 10^3/ul RBC 5.37 (4.0-5.4) 10^6/ul Hgb 14.6 (12.0-16.0) g/dl Hct 43 (35-47) % MCV 80 (80-97) fL MCH 27 (27-31) pg MCHC 34 (31-36) g/dl RDW 16 H (10.5-15) % Plt Count 173 (150-450) 10^3/ul MPV 9 (7.4-10.4) um3 Neut % (Auto) 87.6 H (38-83) % Lymph % (Auto) 5.1 L (25-47) % Becker % (Auto) 6.7 (1-9) % Eos % (Auto) 0.2 (0-6) % Baso % (Auto) 0.4 (0-2) % Absolute Neuts (auto) 8.3 H (1.5-7.7) 10^3/ul Absolute Lymphs (auto) 0.5 L (1.0-4.8) 10^3/ul Absolute Monos (auto) 0.6 (0-0.8) 10^3/ul Absolute Eos (auto) 0 (0-0.6) 10^3/ul Absolute Basos (auto) 0 (0-0.2) 10^3/ul Absolute Nucleated RBC 0 10^3/ul Nucleated RBC % 0 INR (Anticoag Therapy) 1.19 H (0.89-1.11) APTT 23.9 L (26.0-36.3) seconds Sodium 132 L (133-145) mmol/L Potassium 3.6 (3.5-5.0) mmol/L Chloride 100 L (101-111) mmol/L Carbon Dioxide 26 (22-32) mmol/L Anion Gap 6 (2-11) mmol/L BUN 11 (6-24) mg/dL Creatinine 0.84 (0.51-0.95) mg/dL Est GFR ( Amer) 84.1 (>60) Est GFR (Non-Af Amer) 65.4 (>60) BUN/Creatinine Ratio 13.1 (8-20) Glucose 84 (70-100) mg/dL Lactic Acid (0.5-2.0) mmol/L Calcium 9.0 (8.6-10.3) mg/dL Total Bilirubin 0.60 (0.2-1.0) mg/dL AST 40 H (13-39) U/L ALT 96 H (7-52) U/L Alkaline Phosphatase 69 (34-104) U/L Troponin I 0.01 (<0.04) ng/mL C-Reactive Protein 29.18 H (< 5.00) mg/L B-Natriuretic Peptide ( - 100) pg/mL Total Protein 6.6 (6.4-8.9) g/dL Albumin 3.6 (3.2-5.2) g/dL Globulin 3.0 (2-4) g/dL Albumin/Globulin Ratio 1.2 (1-3) Urine Color Urine Appearance Urine pH (5-9) Ur Specific [place] (1.010-1.030) Urine Protein (Negative) Urine Ketones (Negative) Urine Blood (Negative) Urine Nitrate (Negative) Urine Bilirubin (Negative) Urine Urobilinogen (Negative) Ur Leukocyte Esterase (Negative) Urine Glucose (Negative) Influenza A (Rapid) (Negative) Influenza B (Rapid) (Negative) 12/04/16 12/04/16 12/04/16 Range/Units 08:50 08:50 09:37 WBC (3.5-10.8) 10^3/ul RBC (4.0-5.4) 10^6/ul Hgb (12.0-16.0) g/dl Hct (35-47) % MCV (80-97) fL MCH (27-31) pg MCHC (31-36) g/dl RDW (10.5-15) % Plt Count (150-450) 10^3/ul MPV (7.4-10.4) um3 Neut % (Auto) (38-83) % Lymph % (Auto) (25-47) % Becker % (Auto) (1-9) % Eos % (Auto) (0-6) % Baso % (Auto) (0-2) % Absolute Neuts (auto) (1.5-7.7) 10^3/ul Absolute Lymphs (auto) (1.0-4.8) 10^3/ul Absolute Monos (auto) (0-0.8) 10^3/ul Absolute Eos (auto) (0-0.6) 10^3/ul Absolute Basos (auto) (0-0.2) 10^3/ul Absolute Nucleated RBC 10^3/ul Nucleated RBC % INR (Anticoag Therapy) (0.89-1.11) APTT (26.0-36.3) seconds Sodium (133-145) mmol/L Potassium (3.5-5.0) mmol/L Chloride (101-111) mmol/L Carbon Dioxide (22-32) mmol/L Anion Gap (2-11) mmol/L BUN (6-24) mg/dL Creatinine (0.51-0.95) mg/dL Est GFR ( Amer) (>60) Est GFR (Non-Af Amer) (>60) BUN/Creatinine Ratio (8-20) Glucose (70-100) mg/dL Lactic Acid 0.9 (0.5-2.0) mmol/L Calcium (8.6-10.3) mg/dL Total Bilirubin (0.2-1.0) mg/dL AST (13-39) U/L ALT (7-52) U/L Alkaline Phosphatase (34-104) U/L Troponin I (<0.04) ng/mL C-Reactive Protein (< 5.00) mg/L B-Natriuretic Peptide 77 ( - 100) pg/mL Total Protein (6.4-8.9) g/dL Albumin (3.2-5.2) g/dL Globulin (2-4) g/dL Albumin/Globulin Ratio (1-3) Urine Color Urine Appearance Urine pH (5-9) Ur Specific [place] (1.010-1.030) Urine Protein (Negative) Urine Ketones (Negative) Urine Blood (Negative) Urine Nitrate (Negative) Urine Bilirubin (Negative) Urine Urobilinogen (Negative) Ur Leukocyte Esterase (Negative) Urine Glucose (Negative) Influenza A (Rapid) Positive H (Negative) Influenza B (Rapid) Negative (Negative) 12/04/16 Range/Units 09:40 WBC (3.5-10.8) 10^3/ul RBC (4.0-5.4) 10^6/ul Hgb (12.0-16.0) g/dl Hct (35-47) % MCV (80-97) fL MCH (27-31) pg MCHC (31-36) g/dl RDW (10.5-15) % Plt Count (150-450) 10^3/ul MPV (7.4-10.4) um3 Neut % (Auto) (38-83) % Lymph % (Auto) (25-47) % Becker % (Auto) (1-9) % Eos % (Auto) (0-6) % Baso % (Auto) (0-2) % Absolute Neuts (auto) (1.5-7.7) 10^3/ul Absolute Lymphs (auto) (1.0-4.8) 10^3/ul Absolute Monos (auto) (0-0.8) 10^3/ul Absolute Eos (auto) (0-0.6) 10^3/ul Absolute Basos (auto) (0-0.2) 10^3/ul Absolute Nucleated RBC 10^3/ul Nucleated RBC % INR (Anticoag Therapy) (0.89-1.11) APTT (26.0-36.3) seconds Sodium (133-145) mmol/L Potassium (3.5-5.0) mmol/L Chloride (101-111) mmol/L Carbon Dioxide (22-32) mmol/L Anion Gap (2-11) mmol/L BUN (6-24) mg/dL Creatinine (0.51-0.95) mg/dL Est GFR ( Amer) (>60) Est GFR (Non-Af Amer) (>60) BUN/Creatinine Ratio (8-20) Glucose (70-100) mg/dL Lactic Acid (0.5-2.0) mmol/L Calcium (8.6-10.3) mg/dL Total Bilirubin (0.2-1.0) mg/dL AST (13-39) U/L ALT (7-52) U/L Alkaline Phosphatase (34-104) U/L Troponin I (<0.04) ng/mL C-Reactive Protein (< 5.00) mg/L B-Natriuretic Peptide ( - 100) pg/mL Total Protein (6.4-8.9) g/dL Albumin (3.2-5.2) g/dL Globulin (2-4) g/dL Albumin/Globulin Ratio (1-3) Urine Color Straw Urine Appearance Clear Urine pH 5.0 (5-9) Ur Specific [place] 1.005 L (1.010-1.030) Urine Protein Negative (Negative) Urine Ketones Trace H (Negative) Urine Blood Negative (Negative) Urine Nitrate Negative (Negative) Urine Bilirubin Negative (Negative) Urine Urobilinogen Negative (Negative) Ur Leukocyte Esterase Negative (Negative) Urine Glucose Negative (Negative) Influenza A (Rapid) (Negative) Influenza B (Rapid) (Negative) Microbiology and Other Data: Microbiology 12/05/16 22:50 Gram Stain - Final Sputum Expectorated Sputum Culture - Preliminary No Growth Day 1 Assess/Plan/Problems-Billing Ms Rider 81 yo F with h/o anxiety, chronic pain, COPD (not on inhalers or 02 at home), A. fib (on Xarelto), chronic pain presents with Influenza A and COPD exacerbation. - Patient Problems (1) Influenza A Comment: Pt continues to improve. She is ambulating independently without oxygen requirements. Continue tamiflu to complete 5 full days of therapy. (2) COPD exacerbation Comment: No wheezing noted today. Start prednisone taper. (3) Atrial fibrillation Comment: Increase diltiazem given continued tachycardia to 240mg daily, continue xarelto. (4) Chronic pain Comment: Continue home medication regimen. (5) Anxiety Comment: Continue abilify, remeron, wellbutrin and venlafaxine (6) DNR (do not resuscitate) (7) DVT prophylaxis Comment: xarelto Status and Disposition: d/c home tomorrow
--- NOTE | 2016-12-08 02:26 | DS ---
[facility] MEDICINE DISCHARGE SUMMARY: DATE OF ADMISSION: 12/04/16 DATE OF DISCHARGE: 12/07/16 PRIMARY CARE PHYSICIAN: Dr. Merino. ATTENDING PHYSICIAN: Juan A West MD *(dictation provided by Patty Bentley NP) PRIMARY DIAGNOSES: 1. Flu. 2. Chronic obstructive pulmonary disease exacerbation. SECONDARY DIAGNOSES: 1. Atrial fibrillation, on Xarelto. 2. History of supraventricular tachycardia. 3. History of chronic pain. 4. History of small bowel obstruction. 5. Hypertension. 6. Gastroesophageal reflux disease. 7. Anxiety. 8. Depression. 9. Dementia. 10. Chronic obstructive pulmonary disease. PAST SURGICAL HISTORY: 1. History of laparoscopic cholecystectomy. 2. Bilateral total hip arthroplasty. 3. Hysterectomy. 4. Exploratory laparotomy with lysis of adhesions x2. MEDICATIONS: 1. Diltiazem CD 240 mg p.o. daily (dose increased due to tachycardia while inpatient). 2. Prednisone 10 mg via taper over 4 days. 3. Albuterol inhaler q.4 hours p.r.n. shortness of breath (new medication). 4. Systane eye gel, left eye at bedtime as needed. 5. Guaifenesin 15 mL p.o. q.6 hours as needed. 6. Imodium 2 mg p.o. q.4 hours as needed. 7. Tylenol 650 mg p.o. q.4 hours as needed. 8. Senna 2 tabs p.o. at bedtime. 9. Remeron 7.5 mg p.o. at bedtime. 10. Neurontin 600 mg p.o. at bedtime. 11. Aricept 10 mg p.o. at bedtime. 12. Abilify 2 mg p.o. at bedtime. 13. Embeda 1 capsule p.o. b.i.d. 14. Oxycodone 10 mg p.o. q.6 hours. 15. Neurontin 300 mg p.o. t.i.d. 16. Xarelto 20 mg daily. 17. Famotidine 20 mg p.o. b.i.d. 18. Effexor 150 mg in the morning and 75 mg at night. 19. Vitamin B12 1000 mcg p.o. daily. 20. Norvasc 5 mg p.o. daily. 21. Multivitamin with mineral 1 capsule p.o. b.i.d. 22. Wellbutrin 300 mg p.o. daily. 23. Gabapentin 600 mg p.o. at bedtime. HOSPITAL COURSE: Ms. Rider is a 81-year-old female with a past medical history as outlined above who presented to the emergency room on 12/04/16 with concern for cough, rhinorrhea, sore throat, and arthralgias. Please see the dictated H and P from Carter Rosen NP for complete details. In brief, the patient had been feeling unwell for couple of days. She had cough with green sputum production. In the emergency room, she tested positive for flu. Ms. Rider was admitted to the hospital. She was started on Tamiflu and will complete a 5-day course. It was felt that she also had a component of COPD exacerbation and she was placed on nebulizers with aggressive pulmonary toileting and ceftriaxone/azithromycin. With this, Ms. Rider is recovering slowly but is doing well today. She has been able to ambulate on the unit without any oxygen requirement independently. She states she still feels unwell , but feels more than comfortable going home. She think she still be able to independently perform her activities of daily living while resting and recuperating from flu. The patient will be discharged to home on prednisone, albuterol. Ceftriaxone and azithromycin were discontinued during the hospitalization as the patient had no infiltrate on x-ray and no white blood cell count or fever. I think that primarily she has flu causing mild COPD exacerbation and again, she will be completing a course of Tamiflu. During this hospitalization, the patient's heart rate has been elevated from 90 to 130s at times though primarily running in the 90s. Her systolic blood pressure has been running approximately 140. Her diltiazem CD will be increased from 180 mg p.o. daily to 240 mg p.o. daily. The patient will have close followup with Dr. Merino both to evaluate for recovery from flu and to evaluate her diltiazem dosing. Ms. Rider is stable for discharge to home today. DISPOSITION: Home at [place]. DIET: Low salt. ACTIVITY: As tolerated. FOLLOWUP PLAN: Please follow up with Dr. Merino. An appointment will be made for her prior to discharge in the next 4 to 7 days. TIME SPENT: Approximately 60 minutes were spent on the discharge of this patient, more than half of the time was spent with the patient at the bedside reviewing the events leading up to this hospitalization, performing the physical examination, and reviewing the plan of care. PATTY BENTLEY NP CC: Dr. Merino * [id number]/CPS #: [id number] NIC
== END 2016-12-07 12:00 | disposition home or self-care (01) | DRG 194 ==
LOC: ED 08:27 → MEDTELE 11:28
PROVIDERS: ADMIT Internal Medicine; ATTEND Internal Medicine
DX: J10.1 Influenza due to other identified influenza virus with other respiratory manifestations (principal); J44.1 Chronic obstructive pulmonary disease with (acute) exacerbation; I47.1 Supraventricular tachycardia; I48.91 Unspecified atrial fibrillation; F03.90 Unspecified dementia, unspecified severity, without behavioral disturbance, psychotic disturbance, mood disturbance, and anxiety; Z88.8 Allergy status to other drugs, medicaments and biological substances; E78.00 Pure hypercholesterolemia, unspecified; I10 Essential (primary) hypertension; K21.9 Gastro-esophageal reflux disease without esophagitis; Z96.643 Presence of artificial hip joint, bilateral; Z97.4 Presence of external hearing-aid; G89.29 Other chronic pain; M54.9 Dorsalgia, unspecified; Z90.710 Acquired absence of both cervix and uterus; Z87.891 Personal history of nicotine dependence; F41.9 Anxiety disorder, unspecified; F32.9 Major depressive disorder, single episode, unspecified; Z82.3 Family history of stroke; Z82.5 Family history of asthma and other chronic lower respiratory diseases; Z66 Do not resuscitate; M25.561 Pain in right knee; Z79.01 Long term (current) use of anticoagulants
CPT/HCPCS: 36415; 71010; 80048; 80053; 81003; 83605; 83735; 83880; 84484; 85025; 85610; 85730; 86140; 87040; 87070; 87205; 87502; 93005; 94640; 94760; A9270-GY; J0456; J0696; J2060; J2930; J3480; J7512

== ENCOUNTER 2016-12-10 19:15 | Inpatient (IN) | payer MEDICARE, MEDICAID ==
[2016-12-10 20:00] LABS: Hematocrit 39 % (35-47); Hemoglobin 13.1 g/dl (12.0-16.0); Mean Corpuscular HGB Conc 33 g/dl (31-36); Mean Corpuscular Hemoglobin 27 pg (27-31); Mean Corpuscular Volume 80 fL (80-97); Mean Platelet Volume 9 um3 (7.4-10.4); Red Blood Count 4.91 10^6/ul (4.0-5.4); Red Cell Distribution Width 16 % (10.5-15); White Blood Count 15.1 10^3/ul (3.5-10.8)
[2016-12-10] MEDS ORDERED: Piperac/Tazob 3.375 gm in NS* 3.375 GM/100 ML BAG IVPB ONE (20:09)
[2016-12-10 20:14] LABS: Albumin 3.4 g/dL (3.2-5.2); BUN/Creatinine Ratio 25.5 (8-20); Calcium 8.9 mg/dL (8.6-10.3); EGFR African American 28.3 (>60); Globulin 2.6 g/dL (2-4); Total Bilirubin 0.4 mg/dL (0.2-1.0)
[2016-12-10] MEDS ORDERED: NS 0.9% 1000 ML* 1,000 ML IV ONE (20:52)
--- NOTE | 2016-12-10 20:57 | RAD ---
INDICATION: Hypoxia COMPARISON: Most recent comparison chest x-rays dated December 04, 2016 TECHNIQUE: Single AP portable view of the chest was obtained. FINDINGS: Image quality is compromised due to the relative inferiority of a portable chest x-ray. The heart and mediastinum exhibit normal size and contour. The lungs are grossly clear. There is no evidence of a large pleural effusion. Visualized bones are normal for the patient's age. IMPRESSION: No radiographic evidence for acute cardiopulmonary abnormality on this portable chest x-ray.
--- NOTE | 2016-12-10 20:57 | RAD ---
INDICATION: Trauma COMPARISON: CT of the brain dated August 01, 2016 TECHNIQUE: Contiguous axial sections of the brain were obtained from the skull base to the vertex without contrast. FINDINGS: The ventricles, cisterns and sulci exhibit stable involutional changes similar in appearance to the most recent CT of the brain. There is mild to moderate periventricular and subcortical white matter hypoattenuation compatible with chronic microvascular disease and similar to the previous CT of the brain. The méndez-white matter differentiation is adequately maintained and there is no sulcal effacement. No significant focal abnormality or mass effect is present. There is no evidence for intracranial hemorrhage. No significant focal osseous abnormality is present. The visualized portion of the paranasal sinuses and mastoid air cells appear clear. IMPRESSION: Stable chronic findings include involutional changes and evidence of chronic microvascular disease.
[2016-12-10] MEDS ORDERED: Acetaminophen TAB* 325 MG PO PRN (21:26)
[2016-12-10] MEDS ORDERED: Ondansetron INJ* 2 MG/ML VIAL IV PRN (21:26)
--- NOTE | 2016-12-10 21:28 | ED ---
Noé Samayoa Anna, scribed for Rolly Moran MD on 12/10/16 at 2017 . Altered Mental Status - HPI Summary HPI Summary: Pt is a 81 y/o female coming to [facility] presenting with constant altered mental status that began today. The patient was recently hospitalized for influenza and is still being treated with Tamiflu. Today, she experienced weakness and fell. She has also been diaphoretic and confused. She is incontinent at baseline. She is able to answer simple questions but at times becomes nonsensical. She had similar symptoms a year ago when her medications were changed. Her medications were changed again on 12/07/2016. Her history is significant for dementia. She says she feels out of sorts but denies any current pain. LEVEL 5 CAVEAT - FULL HISTORY IS UNATTAINABLE DUE TO ALTERED MENTAL STATUS. - History Of Current Complaint Chief Complaint: EDAltMentalStatus Stated Complaint: FALL Time Seen by Provider: 12/10/16 19:27 Hx Obtained From: Patient, Other: - [facility] Hx From Patient Unobtainable Due To: Altered Mental Status Severity Initially: Moderate Severity Currently: Moderate Character: Confusion - Allergies/Home Medications Allergies/Adverse Reactions: Allergies Allergy/AdvReac Type Severity Reaction Status Date / Time Clonidine Allergy Unknown Verified 12/10/16 19:32 Reaction Details PMH/Surg Hx/FS Hx/Imm Hx Endocrine/Hematology History: Reports: Hx Anticoagulant Therapy Denies: Hx Diabetes, Hx Thyroid Disease Cardiovascular History: Reports: Hx Hypercholesterolemia - per prior record, Hx Hypertension, Other Cardiovascular Problems/Disorders - Afib, SVT Denies: Hx Pacemaker/ICD Respiratory History: Reports: Hx Chronic Obstructive Pulmonary Disease (COPD) Denies: Hx Asthma Comment Only: Other Respiratory Problems/Disorders - per prior record GI History: Reports: Hx Diverticulosis, Hx Gastroesophageal Reflux Disease, Hx Obstructive Bowel, Other GI Disorders - Cdiff after bowel resection April 2012 History: Reports: Other Problems/Disorders - HX BLADDER FISTULA Denies: Hx Renal Disease Musculoskeletal History: Reports: Hx Back Problems, Hx Bursitis, Other Musculoskeletal History - back, hip pain Sensory History: Reports: Hx Contacts or Glasses, Hx Hearing Aid, Hx Hearing Problem Comment Only: Hx Deafness - [facility] Opthaml[facility] History: Reports: Hx Contacts or Glasses Neurological History: Reports: Hx Dementia Denies: Hx Headaches, Hx Seizures, Hx Transient Ischemic Attacks (TIA) Comment Only: Other Neuro Impairments/Disorders - per prior record Psychiatric History: Reports: Hx Anxiety, Hx Depression, Hx Suicide Attempt - Previous overdose attempt, Hx of Violent Episodes Against Others Denies: Hx Eating Disorder, Hx Panic Disorder, Hx Substance Abuse Comment Only: Other Psychiatric Issues/Disorders - per prior record - Cancer History Cancer Type, Location and Year: chronic back pain - Surgical History Surgery Procedure, Year, and Place: Lap cholecystectomy 1999, hysterectomy 1956 , bilat hip replacements 2007 & 2008, L uretheral stent 2009, 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 - Immunization History Date of Tetanus Vaccine: unk Date of Influenza Vaccine: unk Infectious Disease History: Unable to Obtain/Confirm Infectious Disease History: Reports: Hx Clostridium Difficile Denies: Hx Hepatitis, Hx Human Immunodeficiency Virus (HIV), Traveled Outside the [place] in Last 30 Days - Family History Known Family History: Positive: Other - etOH abuse - brother - Social History Occupation: Retired Lives: Assisted Living Alcohol Use: None Substance Use Type: Reports: Prescribed Substance Use Comment - Amount & Last Used: Has overdosed on prescription narcotics Hx Tobacco Use: Yes Smoking Status (MU): Former Smoker Type: Cigarettes Amount Used/How Often: 2-3 Cigarettes/day Have You Smoked in the Last Year: No Review of Systems - ROS Summary Review of Systems Summary: LEVEL 5 CAVEAT - FULL HISTORY IS UNATTAINABLE DUE TO ALTERED MENTAL STATUS. Positive: Skin Diaphoresis Positive: incontinence - baseline Negative: Arthralgia, Myalgia Neurological: Other - confused, AMS Positive: Weakness All Other Systems Reviewed And Are Negative: No Physical Exam - Summary Physical Exam Summary: General: Quite weak, tired but easily aroused with simple conversation. HEENT: Moist mucosa, Pupils small but symmetric Neck: Soft, supple, no adenopathy, no edema Heart: Heart sound distant, but no obvious murmurs, rubs, or gallops Lungs: Breathing comfortably, no wheezes. Good air movement throughout. Trace rhonchi, rales in right lower lobe. O2 Sat 85% on RA. Abd: Soft, flat, nontender Extremities: No calf tenderness. Bilateral ankle edema, which is trace. Skin: No rashes, lesions. Neuro: Alert and able to answer simple questions, but at times becomes nonsensical. Triage Information Reviewed: Yes Vital Signs On Initial Exam: Initial Vitals Temp Pulse Resp BP Pulse Ox 97.8 F 77 18 111/62 91 12/10/16 19:29 12/10/16 19:29 12/10/16 19:29 12/10/16 19:29 12/10/16 19:29 Vital Signs Reviewed: Yes - [place] Coma Scale Coma Scale Total: 12 Diagnostics - Vital Signs Vital Signs Temp Pulse Resp BP Pulse Ox 12/10/16 19:29 97.8 F 77 18 111/62 91 - Laboratory Lab Results: Lab Results 12/10/16 Range/Units 19:50 WBC 15.1 H (3.5-10.8) 10^3/ul RBC 4.91 (4.0-5.4) 10^6/ul Hgb 13.1 (12.0-16.0) g/dl Hct 39 (35-47) % MCV 80 (80-97) fL MCH 27 (27-31) pg MCHC 33 (31-36) g/dl RDW 16 H (10.5-15) % Plt Count 205 (150-450) 10^3/ul MPV 9 (7.4-10.4) um3 Neut % (Auto) 90.5 H (38-83) % Lymph % (Auto) 5.8 L (25-47) % [place] % (Auto) 3.5 (1-9) % Eos % (Auto) 0 (0-6) % Baso % (Auto) 0.2 (0-2) % Absolute Neuts (auto) 13.7 H (1.5-7.7) 10^3/ul Absolute Lymphs (auto) 0.9 L (1.0-4.8) 10^3/ul Absolute Monos (auto) 0.5 (0-0.8) 10^3/ul Absolute Eos (auto) 0 (0-0.6) 10^3/ul Absolute Basos (auto) 0 (0-0.2) 10^3/ul Absolute Nucleated RBC 0.01 10^3/ul Nucleated RBC % 0 Result Diagrams: 12/10/16 19:50 12/10/16 19:50 Lab Statement: Any lab studies that have been ordered have been reviewed, and results considered in the medical decision making process. - Radiology CXR Xray Interpretation: No Acute Changes Radiology Interpretation Completed By: Radiologist - IMPRESSION: No radiographic evidence for acute cardiopulmonary abnormality on this portable chest x-ray. - CT Brain CT CT Interpretation: No Acute Changes CT Interpretation Completed By: Radiologist - IMPRESSION: Stable chronic findings include involutional changes and evidence of chronic microvascular disease. - EKG 2008 Cardiac Rate: NL - 88 bpm EKG Rhythm: Atrial Fibrillation EKG Interpretation: ST Flattening in V4-V6 Altered Mental Statu Course/Dx - Course Assessment/Plan: She presents to the ER after rec being discharged with influenza. Reading the history and physical, this presentation today is actually quite similar. She has a white count of 15, elevated Creatinine, and hypoxia, which apparently is new for her. She has baseline dementia, but has a reported fall as well as increased weakness. Dr. Jean accepts. - Diagnoses Differential Diagnosis/HQI/PQRI: CVA, Hypoglycemia, Hyperthermia, Hypothermia, Hypoxia, Intracranial Bleed, Medication Reaction, Meningitis, Metabolic Disorder , Sepsis, TIA Discharge Diagnoses: Weakness, MARIANO (acute kidney injury), Hypoxemia - Provider Notifications Discussed Care Of Patient With: Dr. Jean (hospitalist) at 2049. Agrees to accept patient for admission. Discharge - Discharge Plan Condition: Guarded Disposition: ADMITTED TO [facility] The documentation as recorded by the Noé lópez Anna accurately reflects the service I personally performed and the decisions made by , Rolly Moran MD.
[2016-12-10] MEDS ORDERED: Albuterol HFA INHALER* 8 gm MDI INH PRN (21:44)
[2016-12-10 21:50] LABS: C Reactive Protein 1.73 mg/L (< 5.00)
[2016-12-11 00:23] LABS: Troponin I 0.02 ng/mL (<0.04)
[2016-12-11 00:34] LABS: TSH (Thyroid Stimulating Horm) 1.09 mcIU/mL (0.34-5.60)
--- NOTE | 2016-12-11 00:53 | HP ---
ADMISSION HISTORY AND PHYSICAL: DATE OF ADMISSION: 12/10/16 PRIMARY CARE PROVIDER: Dr. Merino. ADMITTING PROVIDER: LAURITA Potter SUPERVISING PHYSICIAN: Dr. Dami Jena.* (DICTATED BY LAURITA POTTER) CHIEF COMPLAINT: Altered mental status. HISTORY OF PRESENT ILLNESS: This is a 81-year-old female with a recent hospital admission for influenza, discharged on 12/07/16 back to [facility]. The patient sustained a fall earlier today and returned to the emergency department with concerns for altered mental status. The patient was discharged with 4 additional days of Tamiflu and a prednisone taper. She has 1 additional day of Tamiflu left and is currently receiving 20 mg daily of prednisone. The patient states that she has been unable to make it to the dining area since returning home. She denies any increased cough or feelings of shortness of breath. She denies abdominal pain, nausea, or vomiting. She states that she has not been running any fevers at home. The patient is unable to provide any additional history at this time. PAST MEDICAL HISTORY: 1. Chronic pain syndrome. 2. Hypertension. 3. Atrial fibrillation, anticoagulated on Xarelto. 4. GERD. 5. History of SVT. 6. COPD. 7. Dementia. 8. Depression. PAST SURGICAL HISTORY: 1. Cholecystectomy. 2. Total hip arthroplasty. 3. Hysterectomy. 4. Exploratory laparotomy with lysis of adhesions x2. HOME MEDICATIONS: 1. Abilify 2 mg p.o. at bedtime. 2. Acetaminophen 650 mg p.o. q.6 hours as needed for pain or fever. 3. Albuterol 1 puff inhaled q.4 hours as needed for shortness of breath. 4. Vitamin B12 at 1000 mcg p.o. daily. 5. Cardizem 250 mg p.o. daily. 6. Aricept 10 mg p.o. at bedtime. 7. Pepcid 20 mg p.o. b.i.d. 8. Gabapentin 300 mg p.o. t.i.d. and 600 mg at bedtime. 9. Imodium 2 mg p.o. q.4 hours as needed for diarrhea. 10. Remeron 7.5 mg p.o. at bedtime. 11. Embeda (morphine)/naltrexone 20/0.8 one capsule p.o. b.i.d. 12. Multivitamin 1 capsule p.o. daily. 13. Tamiflu 75 mg p.o. b.i.d. 14. Oxycodone 10 mg p.o. q.6 hours as needed for pain. 15. Xarelto 20 mg p.o. daily. 16. Senna 2 mg p.o. at bedtime. 17. Effexor 75 mg in the evening and 150 mg in the morning. 18. Amlodipine 5 mg p.o. daily. 19. Bupropion 300 mg sustained release each morning. 20. Prednisone at a tapering dose with instructions to take 40 mg x2 days, then 20 mg x2 days, and then stop. SOCIAL HISTORY: The patient is a current resident at [facility]. She is a former smoker and denies any regular alcohol consumption. REVIEW OF SYSTEMS: The patient is able to provide a limited review of systems as noted above in HPI and otherwise negative. PHYSICAL EXAMINATION GENERAL: This is an elderly female who appears extremely lethargic lying in a hospital stretcher. She opens her eyes to voice and is able to carry on a basic conversation, but then starts to mutter and trail off closing her eyes again. VITAL SIGNS: Temperature 97.8 degrees Fahrenheit, pulse 77 beats per minute, respiratory rate 18 per minute, oxygen saturation 91% on room air, and blood pressure of 111/62 mmHg. HEENT: Head is normocephalic and atraumatic. Mucous membranes are pink and mildly dry. RESPIRATORY: Unable to obtain on limited exam, but sounds to be clear without any wheezes, crackles, or rhonchi. CARDIOVASCULAR: Heart has an irregularly irregular rhythm. No murmurs, rubs, or gallops appreciated. ABDOMEN: Abdomen is soft and nontender to palpation. EXTREMITIES: Trace lower extremity edema. SKIN: Limited exam shows no concerning rashes or lesions. PSYCH: The patient is alert but seems to be confused. LABORATORY DATA: CBC shows a white blood cell count of 15,100 with 90% neutrophils; hemoglobin 13.1 g/dL; and a platelet count of 205,000. Comprehensive metabolic panel shows a sodium of 135 mmol/L, potassium 4.0, serum bicarb 23, BUN of 55, creatinine 2.16 with an estimated GFR of 22. Random glucose of 111 mg/dL and a calcium of 8.9. Transaminases and total bilirubin within normal limits. CRP and procalcitonin are pending. IMAGING: Chest x-ray shows no acute process. CT of the brain shows no acute process. EKG shows atrial fibrillation with a rate between 75 and 100 beats per minute without ischemic changes. ASSESSMENT AND PLAN: This is a 81-year-old female with a history of dementia, chronic pain syndrome, hypertension, atrial fibrillation, gastroesophageal reflux disease, and chronic obstructive pulmonary disease who presents 3 days after discharge for influenza, noted to have acute renal insufficiency and altered mental status and sustained a fall earlier today. 1. Acute renal insufficiency - based on recent history and exam findings, acute renal insufficiency is likely secondary to hypovolemia. We will rehydrate with IV fluids and repeat basic metabolic panel in the morning. No offending medications identified. 2. Altered mental status - this is likely secondary to uremic encephalopathy. We will initiate IV fluids and repeat a basic metabolic panel in the morning. 3. Leukocytosis - this may be due to recent steroid use. There is no acute infiltrate appreciated on chest x-ray, but the patient is intravascularly depleted at this time. We will plan to rehydrate and repeat chest x-ray. She did receive antibiotics in the emergency department. She received one dose of Zosyn. We will hold off on any further antibiotics until repeat chest x-ray is completed tomorrow. CRP and procalcitonin were also added on and are currently pending to help to decipher whether antibiotics are indicated for possibly secondary pneumonia following influenza. 4. Atrial fibrillation - the patient is anticoagulated with Xarelto and appears to be rate controlled at this time. 5. Chronic obstructive pulmonary disease - without evidence of acute exacerbation. 6. Dementia. 7. Chronic pain syndrome - we will continue her home pain regimen. 8. Depression - we will hold off on some of her antipsychotic medications at this time due to significant depression of her cognitive status. This can likely resume tomorrow. 9. Recent influenza infection. 10. Code status: The patient is full code. 11. Healthcare proxy is her daughter. 12. DVT prophylaxis. The patient is chronically anticoagulated with Xarelto. DISPOSITION: The patient is being admitted to inpatient status for acute renal insufficiency after recent admission for influenza. Anticipate length of stay to be greater than 2 midnights. LAURITA POTTER CC: Dr. Merino * [id number]/[facility] #: [id number] NIC
[2016-12-11] MEDS: oxyCODONE TAB* 5 MG TAB PO SCH ×5 (01:19→21:30)
[2016-12-11 05:19] LABS: Hematocrit 38 % (35-47); Hemoglobin 12.7 g/dl (12.0-16.0); Mean Corpuscular HGB Conc 33 g/dl (31-36); Mean Corpuscular Hemoglobin 27 pg (27-31); Mean Corpuscular Volume 81 fL (80-97); Mean Platelet Volume 9 um3 (7.4-10.4); Red Blood Count 4.71 10^6/ul (4.0-5.4); Red Cell Distribution Width 16 % (10.5-15); White Blood Count 13.2 10^3/ul (3.5-10.8)
[2016-12-11 05:20] LABS: Add Diff/Slide Review? Slide Review Added; Comments Flag Yes
[2016-12-11 05:31] LABS: BUN/Creatinine Ratio 28.8 (8-20); Calcium 8.5 mg/dL (8.6-10.3); EGFR African American 44.4 (>60); EGFR Non-African American 34.6 (>60); Potassium 3.4 mmol/L (3.5-5.0)
[2016-12-11 05:41] LABS: Urine Bacteria Absent (Absent); Urine Bilirubin Negative (Negative); Urine Glucose Negative (Negative); Urine Nitrite Negative (Negative)
--- NOTE | 2016-12-11 06:11 | PN ---
Progress Note - Progress Note Note: Discussed with LAURITA Lares. Mrs Rider is a 81F presenting with an acute kidney injury and AMS, possibly uremic encephalopathy. Will admit for hydration and renal work up. Agree with assessment and management.
[2016-12-11] MEDS: Diltiazem CD CAP* 240 MG PO SCH (08:56)
[2016-12-11] MEDS: buPROPion SR TAB.SR* 150 MG PO SCH (08:56)
[2016-12-11] MEDS: amLODIPine TAB* 5 MG PO SCH (08:56)
[2016-12-11] MEDS: Venlafaxine EXT RELEASE CAP* 75 MG PO SCH ×2 (08:56→17:23)
[2016-12-11] MEDS: Rivaroxaban TAB(*) 15 MG PO SCH (08:56)
[2016-12-11] MEDS: Famotidine TAB* 20 MG PO SCH ×2 (08:56→20:26)
[2016-12-11] MEDS: Multivitamins/Minerals TAB PO SCH ×2 (08:56→20:26)
[2016-12-11] MEDS: predniSONE TAB* 20 MG PO SCH (08:56)
[2016-12-11] MEDS ORDERED: Oseltamivir CAP* 75 MG PO SCH (09:00)
--- NOTE | 2016-12-11 11:15 | RAD ---
INDICATION: Encephalopathy COMPARISON: Chest x-ray dated December 10, 2016 TECHNIQUE: PA and lateral views of the chest were obtained. FINDINGS: The heart and mediastinum are normal in size and contour. Again seen is calcified atherosclerosis overlying the arch of the aorta. The lungs are grossly clear. There is no evidence of large pleural effusion. Visualized bones are normal for the patient's age. There is no radiographic evidence of free air beneath the diaphragm IMPRESSION: No radiographic evidence of acute cardiopulmonary disease. Aeration appears improved relative to the most recent chest x-ray but this may simply be the consequence of the quality differential of nonportable versus portable chest x-ray.
--- NOTE | 2016-12-11 11:43 | PN ---
Subjective Date of Service: 12/11/16 Interval History: Patient seen this morning. Still seems a bit confused. Very vague as to why she came back to the hospital, "they said I wasn't doing well". When asked specifically how she felt she mentions nausea and feeling "george". Thinks she has been eating well since admission here. Became tearful at the end of our discussion, says she feels frustrated about her current situation, feels lonely. 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 Family History: Unchanged from Admission Social History: Unchanged from Admission Past Medical History: Unchanged from Admission Objective Active Medications: Acetaminophen (Tylenol Tab*) 650 mg PO Q4H PRN Albuterol (Ventolin Hfa Inhaler*) 1 puff INH Q4H PRN Amlodipine Besylate (Norvasc Tab*) 5 mg PO DAILY DAJUAN Bupropion HCl (Wellbutrin Sr Tab*) 300 mg PO QAM DAJUAN Diltiazem HCl (Cardizem Cd Cap*) 240 mg PO DAILY DAJUAN Donepezil HCl (Aricept Tab*) 10 mg PO BEDTIME DAJUAN Famotidine (Pepcid Tab*) 20 mg PO BID DAJUAN Sodium Chloride (Ns 0.9% 1000 Ml*) 1,000 mls @ 75 mls/hr IV PER RATE DAJUAN Multivitamins/Minerals (Theragran/Minerals Tab*) 1 tab PO BID DAJUAN Ondansetron HCl (Zofran Inj*) 4 mg IV Q4H PRN Oxycodone HCl (Roxycodone Tab*) 10 mg PO Q6H DAJUAN Prednisone (Deltasone Tab*) 20 mg PO DAILY DAJUAN Rivaroxaban (Xarelto(*)) 15 mg PO 0800 DAJUAN Venlafaxine HCl (Effexor Xr Cap*) 75 mg PO QPM DAJUAN Venlafaxine HCl (Effexor Xr Cap*) 150 mg PO QAM DAJUAN Vital Signs 12/10/16 12/10/16 12/10/16 21:30 22:00 23:30 Temperature 97.5 F Pulse Rate 82 84 88 Respiratory 23 19 18 Rate Blood Pressure 114/68 133/67 (mmHg) O2 Sat by Pulse 91 95 100 Oximetry 12/11/16 12/11/16 12/11/16 00:02 00:16 01:19 Temperature 97.5 F Pulse Rate 88 Respiratory 18 18 16 Rate Blood Pressure 133/67 (mmHg) O2 Sat by Pulse 100 Oximetry 12/11/16 12/11/16 12/11/16 03:08 07:50 09:45 Temperature 98.0 F 98.5 F Pulse Rate 104 94 Respiratory 16 19 Rate Blood Pressure 103/78 155/84 (mmHg) O2 Sat by Pulse 100 100 Oximetry Oxygen Devices in Use Now: None Appearance: Elderly, F, sitting in chair in NAD Eyes: No Scleral Icterus Ears/Nose/Mouth/Throat: Mucous Membranes Moist Neck: NL Appearance and Movements; NL JVP Respiratory: Symmetrical Chest Expansion and Respiratory Effort, Clear to Auscultation Cardiovascular: NL Sounds; No Murmurs; No JVD, RRR Abdominal: NL Sounds; No Tenderness; No Distention Lymphatic: No Cervical Adenopathy Extremities: No Edema Skin: No Rash or Ulcers Neurological: - - Alert, oriented to self, could not name place ([facility] or [facility]), year (2018) or day (Mon), correct month. No focal deficits. Result Diagrams: 12/11/16 04:57 12/11/16 04:57 Additional Lab and Data: Lab Results 12/10/16 Range/Units 19:50 WBC 15.1 H (3.5-10.8) 10^3/ul RBC 4.91 (4.0-5.4) 10^6/ul Hgb 13.1 (12.0-16.0) g/dl Hct 39 (35-47) % MCV 80 (80-97) fL MCH 27 (27-31) pg MCHC 33 (31-36) g/dl RDW 16 H (10.5-15) % Plt Count 205 (150-450) 10^3/ul MPV 9 (7.4-10.4) um3 Neut % (Auto) 90.5 H (38-83) % Lymph % (Auto) 5.8 L (25-47) % [place] % (Auto) 3.5 (1-9) % Eos % (Auto) 0 (0-6) % Baso % (Auto) 0.2 (0-2) % Absolute Neuts (auto) 13.7 H (1.5-7.7) 10^3/ul Absolute Lymphs (auto) 0.9 L (1.0-4.8) 10^3/ul Absolute Monos (auto) 0.5 (0-0.8) 10^3/ul Absolute Eos (auto) 0 (0-0.6) 10^3/ul Absolute Basos (auto) 0 (0-0.2) 10^3/ul Absolute Nucleated RBC 0.01 10^3/ul Nucleated RBC % 0 Assess/Plan/Problems-Billing Assessment: MARIANO, confusion, mechanical fall in a 81 yo F recently hospitalized with flu with hx of HTN, dementia, AFib on xarelto, GERD, COPD, chronic pain - Patient Problems (1) MARIANO (acute kidney injury) Current Visit: No Comment: Improving with IVF, still not back to baseline. Continue NS and encourage PO intake. (2) Confusion Current Visit: Yes Comment: Difficult to tell how far off her baseline she is with underlying dementia. (3) Leukocytosis Current Visit: Yes Comment: Trending down. No fever, signs of bacterial infection. Procalcitonin negative. No ABx. (4) COPD (chronic obstructive pulmonary disease) Current Visit: Yes Comment: Continue prednisone taper, albuterol (5) Atrial fibrillation Current Visit: No Comment: Continue Diltiazem and Xarelto. (6) Chronic pain Current Visit: No Comment: Continue home medication regimen. Don't think Oxy is neccesarily contributing. (7) Influenza A Current Visit: No Comment: No further Tamiflu needed. (8) DVT prophylaxis Current Visit: No Comment: xarelto Status and Disposition: Inpatient for MARIANO, IVF. PT eval, may not be able to go back to independent living
[2016-12-11] MEDS: NS 0.9% 1000 ML* 1,000 ML IV SCH (14:16)
[2016-12-11] MEDS: Donepezil TAB* 5 MG PO SCH (20:26)
[2016-12-12] MEDS: oxyCODONE TAB* 5 MG TAB PO SCH ×5 (03:55→21:16)
[2016-12-12 06:52] LABS: Hematocrit 44 % (35-47); Hemoglobin 14.5 g/dl (12.0-16.0); Mean Corpuscular HGB Conc 33 g/dl (31-36); Mean Corpuscular Hemoglobin 27 pg (27-31); Mean Corpuscular Volume 80 fL (80-97); Mean Platelet Volume 9 um3 (7.4-10.4); Red Blood Count 5.44 10^6/ul (4.0-5.4); Red Cell Distribution Width 16 % (10.5-15); White Blood Count 16.9 10^3/ul (3.5-10.8)
[2016-12-12 06:53] LABS: Add Diff/Slide Review? Slide Review Added; Comments Flag Yes
[2016-12-12 07:14] LABS: BUN/Creatinine Ratio 23.5 (8-20); Calcium 8.8 mg/dL (8.6-10.3); EGFR African American 107.3 (>60); EGFR Non-African American 83.5 (>60)
[2016-12-12 07:21] LABS: Potassium 2.6 mmol/L (3.5-5.0)
[2016-12-12 08:39] LABS: Magnesium 1.7 mg/dL (1.9-2.7)
[2016-12-12] MEDS: KCL 10 MEQ/50 ML IVPREMIX* 10 MEQ/50 ML BAG IV SCH ×3 (08:56→13:32)
[2016-12-12] MEDS ORDERED: LORazepam INJ* 2 MG/ML 1 ML VIAL IV PUSH ONE (09:34)
[2016-12-12] MEDS: buPROPion SR TAB.SR* 150 MG PO SCH (10:39)
[2016-12-12] MEDS: Famotidine TAB* 20 MG PO SCH ×2 (10:39→21:15)
[2016-12-12] MEDS: predniSONE TAB* 20 MG PO SCH (10:40)
[2016-12-12] MEDS: amLODIPine TAB* 5 MG PO SCH (10:41)
[2016-12-12] MEDS: Multivitamins/Minerals TAB PO SCH ×2 (10:41→21:13)
[2016-12-12] MEDS: Potassium Chlor TAB* 20 MEQ TAB.ER PO SCH ×2 (10:47→13:24)
[2016-12-12] MEDS: Diltiazem CD CAP* 240 MG PO SCH (10:59)
[2016-12-12] MEDS: Venlafaxine EXT RELEASE CAP* 75 MG PO SCH ×2 (11:00→18:26)
[2016-12-12] MEDS: MORPHINE NALTREXONE PO SCH ×2 (11:04→21:24)
[2016-12-12] MEDS: Rivaroxaban TAB(*) 15 MG PO SCH (11:10)
[2016-12-12] MEDS ORDERED: KCL 10 MEQ/50 ML IVPREMIX* 10 MEQ/50 ML BAG ONE (13:20)
[2016-12-12] MEDS: Gabapentin CAP(*) 300 MG PO SCH ×2 (13:24→21:14)
[2016-12-12] MEDS ORDERED: Magnesium Sulfate 1 GM IV* 1 GM/100 ML BAG IV ONE (13:54)
--- NOTE | 2016-12-12 14:00 | PN ---
Subjective Date of Service: 12/12/16 Interval History: pt is very anxious appearing. Keeps on repeating to "let her go home". Refused to eat breakfast today. Family History: Unchanged from Admission Social History: Unchanged from Admission Past Medical History: Unchanged from Admission Objective Active Medications: Acetaminophen (Tylenol Tab*) 650 mg PO Q4H PRN PRN Reason: FEVER/PAIN Albuterol (Ventolin Hfa Inhaler*) 1 puff INH Q4H PRN PRN Reason: SOB/WHEEZING Amlodipine Besylate (Norvasc Tab*) 5 mg PO DAILY [facility] Last Admin: 12/12/16 10:41 Dose: 5 mg Aripiprazole (Abilify Tab*) 2 mg PO BEDTIME [facility] Bupropion HCl (Wellbutrin Sr Tab*) 300 mg PO QAM [facility] Last Admin: 12/12/16 10:39 Dose: 300 mg Diltiazem HCl (Cardizem Cd Cap*) 240 mg PO DAILY [facility] Last Admin: 12/12/16 10:59 Dose: 240 mg Donepezil HCl (Aricept Tab*) 10 mg PO BEDTIME [facility] Last Admin: 12/11/16 20:26 Dose: 10 mg Famotidine (Pepcid Tab*) 20 mg PO BID [facility] Last Admin: 12/12/16 10:39 Dose: 20 mg Gabapentin (Neurontin Cap(*)) 300 mg PO TID [facility] Last Admin: 12/12/16 13:24 Dose: 300 mg Sodium Chloride (Ns 0.9% 1000 Ml*) 1,000 mls @ 75 mls/hr IV PER RATE [facility] Last Admin: 12/11/16 14:16 Dose: 75 mls/hr Magnesium Sulfate/Dextrose (Magnesium Sulfate 1 Gm Iv*) 1 gm in 100 mls @ 200 mls/hr IV ONCE ONE Stop: 12/12/16 14:23 Mirtazapine (Remeron Tab*) 7.5 mg PO BEDTIME [facility] Multivitamins/Minerals (Theragran/Minerals Tab*) 1 tab PO BID [facility] Last Admin: 12/12/16 10:41 Dose: 1 tab Morphine-Naltrexone ([Embeda 20-0.8 Mg]) 1 cap PO BID [facility] Last Admin: 12/12/16 11:04 Dose: Not Given Ondansetron HCl (Zofran Inj*) 4 mg IV Q4H PRN PRN Reason: NAUSEA/VOMITING Last Admin: 12/12/16 08:56 Dose: 4 mg Oxycodone HCl (Roxycodone Tab*) 10 mg PO Q6H [facility] Last Admin: 12/12/16 13:25 Dose: 10 mg Rivaroxaban (Xarelto(*)) 15 mg PO 0800 [facility] Last Admin: 12/12/16 11:10 Dose: 15 mg Venlafaxine HCl (Effexor Xr Cap*) 75 mg PO QPM [facility] Last Admin: 12/11/16 17:23 Dose: 75 mg Venlafaxine HCl (Effexor Xr Cap*) 150 mg PO QAM [facility] Last Admin: 12/12/16 11:00 Dose: 150 mg Vital Signs 12/11/16 12/11/16 12/11/16 15:52 19:17 19:48 Temperature 98.0 F 97.4 F Pulse Rate 87 98 Respiratory 20 16 17 Rate Blood Pressure 130/53 146/70 (mmHg) O2 Sat by Pulse 98 99 Oximetry 12/11/16 12/11/16 12/11/16 21:30 23:26 23:30 Temperature 97.5 F Pulse Rate 83 Respiratory 16 21 17 Rate Blood Pressure 155/84 (mmHg) O2 Sat by Pulse 100 Oximetry 12/11/16 12/12/16 12/12/16 23:32 03:55 05:55 Temperature 97.5 F Pulse Rate 83 Respiratory 21 16 17 Rate Blood Pressure 155/84 (mmHg) O2 Sat by Pulse 100 Oximetry 12/12/16 12/12/16 12/12/16 07:48 09:51 10:51 Temperature 97.8 F Pulse Rate 91 Respiratory 18 20 22 Rate Blood Pressure 159/84 (mmHg) O2 Sat by Pulse 93 Oximetry 12/12/16 12/12/16 13:24 13:25 Temperature Pulse Rate Respiratory 18 18 Rate Blood Pressure (mmHg) O2 Sat by Pulse Oximetry Oxygen Devices in Use Now: None Appearance: 81 yo F in nAD, oriented to self, disoriented to place. able to follow commands Eyes: No Scleral Icterus, PERRLA Ears/Nose/Mouth/Throat: NL Teeth, Lips, Gums, Mucous Membranes Moist Neck: NL Appearance and Movements; NL JVP, Trachea Midline Respiratory: Symmetrical Chest Expansion and Respiratory Effort, Clear to Auscultation Cardiovascular: NL Sounds; No Murmurs; No JVD, RRR, No Edema Abdominal: NL Sounds; No Tenderness; No Distention, No Hepatosplenomegaly Lymphatic: No Cervical Adenopathy Extremities: No Edema, No Clubbing, Cyanosis Skin: No Rash or Ulcers, No Nodules or Sclerosis Neurological: NL Muscle Strength and Tone Result Diagrams: 12/12/16 06:16 12/12/16 06:16 Additional Lab and Data: Lab Results 12/10/16 Range/Units 19:50 WBC 15.1 H (3.5-10.8) 10^3/ul RBC 4.91 (4.0-5.4) 10^6/ul Hgb 13.1 (12.0-16.0) g/dl Hct 39 (35-47) % MCV 80 (80-97) fL MCH 27 (27-31) pg MCHC 33 (31-36) g/dl RDW 16 H (10.5-15) % Plt Count 205 (150-450) 10^3/ul MPV 9 (7.4-10.4) um3 Neut % (Auto) 90.5 H (38-83) % Lymph % (Auto) 5.8 L (25-47) % [place] % (Auto) 3.5 (1-9) % Eos % (Auto) 0 (0-6) % Baso % (Auto) 0.2 (0-2) % Absolute Neuts (auto) 13.7 H (1.5-7.7) 10^3/ul Absolute Lymphs (auto) 0.9 L (1.0-4.8) 10^3/ul Absolute Monos (auto) 0.5 (0-0.8) 10^3/ul Absolute Eos (auto) 0 (0-0.6) 10^3/ul Absolute Basos (auto) 0 (0-0.2) 10^3/ul Absolute Nucleated RBC 0.01 10^3/ul Nucleated RBC % 0 Microbiology and Other Data: Microbiology 12/11/16 05:20 Urine Culture - Preliminary Urine Staphylococcus Haemolyticus Assess/Plan/Problems-Billing Assessment: MARIANO, confusion, mechanical fall in a 81 yo F recently hospitalized with flu with hx of HTN, dementia, AFib on xarelto, GERD, COPD, chronic pain - Patient Problems (1) MARIANO (acute kidney injury) Comment: resolved with IVF. Continue NS and encourage PO intake. suspect anxiety plays a big role in pt's refusal to eat. (2) Confusion Comment: Pt has underlying dementia and now is very anxious due to the stress associated with hospital stay. will restart all previously held antidepressant meds today. Prednisone may alos be contributing-will d/c (3) Atrial fibrillation Comment: Continue Diltiazem and Xarelto. chronic, rate controlled. (4) COPD (chronic obstructive pulmonary disease) Comment: not in exacerbation. will stop prednisone (5) History of hypertension Comment: uncontrolled. will increase Norvasc. (6) Leukocytosis Comment: still present. No fever, signs of bacterial infection. Procalcitonin negative. No ABx. (7) DVT prophylaxis Comment: xarelto Status and Disposition: Inpatient for MARIANO, IVF.PT cleared pt with ambulation with minimal assist. Suspect once pt's PO intake increases she will be able to go back to independent living
[2016-12-12] MEDS ORDERED: amLODIPine TAB* 5 MG PO SCH (14:02)
[2016-12-12 18:51] LABS: BUN/Creatinine Ratio 18.3 (8-20); Calcium 8.9 mg/dL (8.6-10.3); EGFR Non-African American 96.4 (>60); Potassium 3.5 mmol/L (3.5-5.0)
[2016-12-12] MEDS ORDERED: Mirtazapine TAB* 15 MG PO SCH (21:00)
[2016-12-12] MEDS ORDERED: ARIPiprazole TAB* 2 MG PO SCH (21:00)
[2016-12-12] MEDS: Donepezil TAB* 5 MG PO SCH (21:15)
[2016-12-13] MEDS: oxyCODONE TAB* 5 MG TAB PO SCH ×2 (04:03→10:02)
[2016-12-13 06:15] LABS: Hematocrit 44 % (35-47); Hemoglobin 14.7 g/dl (12.0-16.0); Mean Corpuscular HGB Conc 34 g/dl (31-36); Mean Corpuscular Hemoglobin 27 pg (27-31); Mean Corpuscular Volume 81 fL (80-97); Mean Platelet Volume 9 um3 (7.4-10.4); Red Blood Count 5.43 10^6/ul (4.0-5.4); Red Cell Distribution Width 17 % (10.5-15); White Blood Count 14.3 10^3/ul (3.5-10.8)
[2016-12-13 06:20] LABS: Add Diff/Slide Review? Slide Review Added; Comments Flag Yes
[2016-12-13 06:28] LABS: BUN/Creatinine Ratio 15.1 (8-20); Calcium 8.7 mg/dL (8.6-10.3); EGFR African American 98.9 (>60); EGFR Non-African American 76.9 (>60); Potassium 3.4 mmol/L (3.5-5.0)
[2016-12-13 08:16] VITALS: BP 132/75
[2016-12-13] MEDS: Venlafaxine EXT RELEASE CAP* 75 MG PO SCH (08:28)
[2016-12-13] MEDS: Multivitamins/Minerals TAB PO SCH (08:28)
[2016-12-13] MEDS: Rivaroxaban TAB(*) 15 MG PO SCH (08:28)
[2016-12-13] MEDS: Famotidine TAB* 20 MG PO SCH (08:28)
[2016-12-13] MEDS: Diltiazem CD CAP* 240 MG PO SCH (08:28)
[2016-12-13] MEDS: buPROPion SR TAB.SR* 150 MG PO SCH (08:28)
[2016-12-13] MEDS: Gabapentin CAP(*) 300 MG PO SCH (08:28)
[2016-12-13] MEDS: MORPHINE NALTREXONE PO SCH (08:29)
[2016-12-13] MEDS ORDERED: PROCHLORPERAZINE INJ 5 MG/ML 2 ML VIAL IV PRN (09:00)
[2016-12-13] MEDS: NS 0.9% 1000 ML* 1,000 ML IV SCH (09:58)
[2016-12-13] MEDS: KCL 20 MEQ/100 ML IVPREMIX* 20 MEQ/100 ML BAG IV SCH ×2 (09:59→12:40)
[2016-12-13] MEDS ORDERED: Potassium Chlor TAB* 20 MEQ TAB.ER PO ONE (11:00)
--- NOTE | 2016-12-14 19:32 | DS ---
DISCHARGE SUMMARY: DATE OF ADMISSION: 12/10/16 DATE OF DISCHARGE: 12/13/16 PRIMARY CARE PROVIDER: Dr. Merino. DISCHARGE DIAGNOSES: 1. Confusion, most likely due to combination of toxic metabolic encephalopathy due to uremia, as well as possible hyperactive delirium with combination of anxiety and prednisone use. 2. Acute kidney injury due to dehydration. SECONDARY DIAGNOSES: 1. History of atrial fibrillation, on Xarelto. 2. History of supraventricular tachycardia. 3. History of chronic pain. 4. History of small bowel obstruction. 5. Hypertension. 6. Gastroesophageal reflux disease. 7. Anxiety. 8. Depression. 9. Dementia. 10. Chronic obstructive pulmonary disease. 11. History of laparoscopic cholecystectomy. 12. History of bilateral hip arthroplasty. 13. Hysterectomy. 14. Exploratory laparotomy with lysis of adhesions x2 in the remote past. MEDICATIONS AT DISCHARGE: Include: 1. Abilify 2 mg at bedtime. 2. Tylenol on a p.r.n. basis. 3. Albuterol inhaler 1 puff every 4 hours p.r.n. 4. Vitamin B12 1000 mcg daily. 5. Cardizem CD 240 mg daily. 6. Aricept 10 mg at bedtime. 7. Pepcid 20 mg b.i.d. 8. Neurontin 600 mg at bedtime and 300 mg 3 times a day. 9. Systane eye gel 0.3% to left eye at bedtime. 10. Imodium 2 mg every 4 hours p.r.n. 11. Remeron 7.5 mg at bedtime. 12. Embeda 20/0.8 mg one capsule b.i.d. 13. Multivitamin 1 tablet b.i.d. 14. Oxycodone 10 mg every 6 hours p.r.n. 15. Xarelto 20 mg daily. 16. Senokot 2 tablets at bedtime. 17. Effexor XR, the patient takes 75 mg q.p.m. and 150 mg q.a.m. 18. Amlodipine 5 mg daily. 19. Wellbutrin SR 300 mg daily. 20. Robitussin 1 tsp every 6 hours for cough. LABORATORY DATA AND STUDIES PERFORMED DURING THE HOSPITAL STAY: Included on , white blood cell count of 14.3, hemoglobin of 14.7, hematocrit of 44, and platelets of 229. Sodium was 140, potassium 3.4, chloride 103, carbon dioxide 31, BUN 11, creatinine 0.7. Urinalysis performed on 12/11/16 showed +2 esterase, +2 white blood cells, negative for bacteria. Microbiology studies were positive for 10,000 to 25,000 colonies of Staphylococcus haemolyticus in the patient's urine. The patient's creatinine during patient's hospital stay peaked at 2.16 at admission. HOSPITALIZATION COURSE: Raquel Rider is a 81-year-old female with history of chronic pain and anxiety, who was diagnosed with influenza A on 12/04/16. She also was diagnosed with COPD exacerbation, treated with steroids. She was discharged on 12/07/16 back to [facility]. Apparently back at [facility], she did not feel well, was vomiting and complaining of constant nausea and refusing to eat. On 12/10/16, she presented with confusion and she was noted to be in acute kidney injury and dehydration. She was also more confused than usual. She does have history of anxiety and dementia at baseline. The confusion was deemed most likely to be due to toxic metabolic encephalopathy in combination of uremia, dehydration, as well as anxiety, and maybe mild delirium due to steroid use. The patient was placed on steroid taper to go home due to COPD exacerbation. During the patient's current hospital stay from 12/10/16 to 12/13/16, she was rehydrated with intravenous fluids. Initially, she complained of nausea but that resolved by the time of discharge. She ate 80% of her meals on the day of discharge. Her acute renal failure resolved spontaneously with intravenous fluids. She did not appear to be infected anymore and her Tamiflu treatment started at previous hospital stay was completed. She was weaned off steroids with good results. By the time of discharge, she is pleasant, cooperative, and forgetful. She is going to be discharged home with followup with Dr. Merino in approximately 4 to 7 days. PHYSICAL EXAMINATION: At the time of discharge, blood pressure of 132/75, heart rate of 84 and regular, respiratory rate 17, oxygen saturation 97%on room air, temperature 97.6. General: The patient is a very pleasant 81-year-old female who is in no acute distress. The patient is alert and oriented x2. HEENT: Head, atraumatic, normocephalic. Eyes: Pupils equal, reactive to light and accommodation. Oropharynx clear. Mucosa moist. Neck: Supple. No JVD. No bruit bilaterally. Cardiovascular: Regular rate and rhythm. No murmurs. Respiratory: Crackles at bilateral bases. Abdomen: Soft, nontender. Bowel sounds present in all 4 quadrants. Extremities: There is no edema. Pulses +2 bilaterally. There is clubbing or cyanosis. On neuro evaluation, speech clear. Cranial nerves II through XII grossly intact. Motor strength is 5/5 bilaterally. Please note this is a short summary of the patient's hospital stay. Please refer to further medical records for details. TIME SPENT: Approximately 40 minutes was present on the patient's discharge. CC: Dr. Merino; [facility]* [id number]/[facility] #: [id number]
== END 2016-12-13 12:10 | DRG 682 ==
LOC: ED 19:15 → MED 21:26
PROVIDERS: ADMIT Hospitalist; ATTEND Internal Medicine
DX: N17.9 Acute kidney failure, unspecified (principal); G92 Toxic encephalopathy; J44.9 Chronic obstructive pulmonary disease, unspecified; E86.0 Dehydration; I48.91 Unspecified atrial fibrillation; I47.1 Supraventricular tachycardia; F03.90 Unspecified dementia, unspecified severity, without behavioral disturbance, psychotic disturbance, mood disturbance, and anxiety; F32.9 Major depressive disorder, single episode, unspecified; I10 Essential (primary) hypertension; D72.829 Elevated white blood cell count, unspecified; G89.29 Other chronic pain; F41.9 Anxiety disorder, unspecified; K21.9 Gastro-esophageal reflux disease without esophagitis; Z79.01 Long term (current) use of anticoagulants; Z96.643 Presence of artificial hip joint, bilateral; Z79.1 Long term (current) use of non-steroidal anti-inflammatories (NSAID); Z79.891 Long term (current) use of opiate analgesic; Z79.52 Long term (current) use of systemic steroids; Z79.899 Other long term (current) drug therapy; Z87.891 Personal history of nicotine dependence
CPT/HCPCS: 36415; 70450; 71010; 71020; 80048; 80053; 81003; 81015; 83605; 83735; 84145; 84443; 84484; 85025; 86140; 87077; 87086; 87186; 93005; A9270-GY; J2060; J2405; J2543; J3475; J3480; J7512

== ENCOUNTER 2017-02-05 15:26 | Inpatient (IN) | payer MEDICARE, MEDICAID ==
[2017-02-05] MEDS ORDERED: NS 0.9% 1000 ML* 1,000 ML IV ONE (15:46)
--- NOTE | 2017-02-05 16:24 | RAD ---
INDICATION: Altered mental status COMPARISON: December 11, 2016 TECHNIQUE: An AP portable view obtained at 1600 hours is submitted. FINDINGS: Bones/Soft Tissues: There are no acute bony findings. Cardiomediastinal: The cardiomediastinal silhouette is normal. Lungs: There are no infiltrates. Pleura: There are no pleural effusions. Other: None IMPRESSION: NO ACTIVE DISEASE.
[2017-02-05 16:35] LABS: Urine Bilirubin Negative (Negative); Urine Glucose Negative (Negative); Urine Nitrite Negative (Negative)
[2017-02-05 16:49] LABS: Hematocrit 40 % (35-47); Hemoglobin 13.3 g/dl (12.0-16.0); Mean Corpuscular HGB Conc 33 g/dl (31-36); Mean Corpuscular Hemoglobin 27 pg (27-31); Mean Corpuscular Volume 80 fL (80-97); Mean Platelet Volume 9 um3 (7.4-10.4); Red Blood Count 4.99 10^6/ul (4.0-5.4); Red Cell Distribution Width 18 % (10.5-15); White Blood Count 13.6 10^3/ul (3.5-10.8)
[2017-02-05 16:55] LABS: Benzodiazepine Urine Screen None Detected (None Detect)
[2017-02-05 17:03] LABS: ALT 9 U/L (7-52); AST 14 U/L (13-39); Albumin 4.1 g/dL (3.2-5.2); Alkaline Phosphatase 48 U/L (34-104); Anion Gap 9 mmol/L (2-11); BUN/Creatinine Ratio 13.1 (8-20); Blood Urea Nitrogen 8 mg/dL (6-24); CO2 Carbon Dioxide 29 mmol/L (22-32); Calcium 9.7 mg/dL (8.6-10.3); Chloride 102 mmol/L (101-111); Creatine Kinase 45 U/L (10-223); EGFR African American 121.7 (>60); EGFR Non-African American 94.6 (>60); Globulin 3.2 g/dL (2-4); Glucose 107 mg/dL (70-100); Sodium 140 mmol/L (133-145); Total Protein 7.3 g/dL (6.4-8.9)
[2017-02-05 17:05] LABS: Troponin I 0.01 ng/mL (<0.04)
--- NOTE | 2017-02-05 17:15 | RAD ---
INDICATION: Altered mental status. COMPARISON: CT brain December 10, 2016 TECHNIQUE: Noncontrast axial source images were acquired from the skull base to the vertex. FINDINGS: Ventricles/sulci: There is cortical atrophy with compensatory dilatation of the CSF spaces. There is right lateral and intraventricular hemorrhage and there is partial effacement of the right lateral ventricle. As a small amount of hemorrhage in the third ventricle Brain parenchyma: There is a 3.4 x 6.1 cm focus of intraparenchymal hemorrhage at the level the bilateral ventricles on the right and a second 3.3 x 5.0 cm of intraparenchymal hemorrhage in the right temporal lobe. Both areas are associated with small amount of vasogenic edema. There is effacement of sulci in the right cerebral hemisphere. There is 1 cm of subfalcine herniation to the left Intracranial hemorrhage:None. Extra-axial spaces: There are no abnormal extra axial fluid collections or evidence of extra-axial mass. Calvarium: There is no calvarial fracture or other calvarial abnormality. Scalp: There is no evidence of scalp or extracalvarial soft tissue abnormality. Paranasal sinuses/mastoid: The paranasal sinuses and mastoid air cells are clear. Other: None. IMPRESSION: SEVERAL LARGE AREAS OF INTRAPARENCHYMAL HEMORRHAGE IN THE RIGHT CEREBRAL HEMISPHERE DESCRIBED WITH ASSOCIATED VASOGENIC EDEMA AND LOCALIZED MASS EFFECT IN ADDITION TO MILD SUBFALCINE HERNIATION TO THE LEFT. INTRAVENTRICULAR HEMORRHAGE IS NOTED WELL. . Findings called to ED
[2017-02-05 17:18] LABS: Acetaminophen < 15 mcg/mL; Alcohol < 10 mg/dL (<10)
--- NOTE | 2017-02-05 17:21 | RAD ---
INDICATION: Neck pain COMPARISON: MRI cervical spine January 19, 2016 TECHNIQUE: Noncontrast axial source images was performed from the skull base to the thoracic inlet. Coronal and and sagittal reformatted images were generated. FINDINGS: Vertebrae: There is no fracture or acute focal bony lesion. There is moderate multilevel degenerative change with multilevel disc space narrowing. There is fusion at C3-C4 with a sharp reversal of the normal curvature. There is a 5 mm anterolisthesis of C3 relative to C4 there is also prominent tilting of the head to the right with a rotational deformity Alignment: The craniocervical junction appears normal. The cervical vertebrae are normally aligned. Central Canal: There are no significant CT abnormalities of the central canal or foramina. MR imaging is a more sensitive method to evaluate the canal and foramina. Intervertebral disc spaces: As above. Brain: See separate CT brain report. Soft tissues: The visualized soft tissue elements of the neck are unremarkable. The prevertebral soft tissues appear normal. The lung apices are clear. IMPRESSION: PROMINENT CERVICAL SCOLIOSIS AND FOCAL KYPHOSIS WITH C3-C4 ANTEROLISTHESIS. NO ACUTE FINDINGS. UNDERLYING OSTEOARTHRITIS.
[2017-02-05 17:30] LABS: TSH (Thyroid Stimulating Horm) 1.74 mcIU/mL (0.34-5.60)
[2017-02-05] MEDS ORDERED: Morphine INJ* 2 MG/ML 1 ML SYRINGE IV PRN (17:50)
--- NOTE | 2017-02-05 17:54 | RAD ---
INDICATION: Right hip pain COMPARISON: CT abdomen pelvis September 17, 2015 TECHNIQUE: An AP view of the pelvis and AP views of the hip in neutral and abducted position were obtained FINDINGS: Bones: There are no acute bony findings. There is osteopenia. There is bilateral hip arthroplasty. The prostheses appear normally seated. Joint spaces: As above bilateral hip arthroplasty. SI joints/symphysis: The SI joints and symphysis are intact. Other: None IMPRESSION: NO ACUTE BONY FINDINGS.
[2017-02-05] MEDS ORDERED: Ondansetron INJ* 2 MG/ML VIAL IV PRN (18:01)
[2017-02-05] MEDS ORDERED: Acetaminophen SUPP* 650 MG SUPP PR PRN (18:01)
[2017-02-05] MEDS ORDERED: NS 0.9% 1000 ML* 1,000 ML IV SCH (18:30)
--- NOTE | 2017-02-05 18:32 | ED ---
I, Oh,Soohyun, scribed for Zen Paez MD on 02/05/17 at 1551 . Altered Mental Status - HPI Summary HPI Summary: LEVEL 5 CAVEAT secondary to AMS. This 81 y/o female presents to ED from [facility] via ambulance with the initial complaint of a fall and right hip pain this afternoon. Per EMT pt's chief and sole complaint was right hip pain. At initial evaluation pt gives inconsistent history and complaints, initially denying any complaints and then reporting "pain all over body and head". PMHx includes left and right hip replacement, HTN, arthritis, dementia, afib with hx of Xarelto tx, SVT and arthritis. Pt is also reported to be CANTWELL. - History Of Current Complaint Stated Complaint: FALL Time Seen by Provider: 02/05/17 15:36 Hx Obtained From: EMS, Medical Records Hx From Patient Unobtainable Due To: Altered Mental Status Onset/Duration: Unknown Timing: Constant Aggravating Factor(s): Nothing Alleviating Factor(s): Nothing Associated Signs And Symptoms: Positive: Recent Trauma - a fall - Allergies/Home Medications Allergies/Adverse Reactions: Allergies Allergy/AdvReac Type Severity Reaction Status Date / Time Clonidine Allergy Unknown Verified 12/10/16 19:32 Reaction Details PMH/Surg Hx/FS Hx/Imm Hx Endocrine/Hematology History: Reports: Hx Anticoagulant Therapy Denies: Hx Diabetes, Hx Thyroid Disease Cardiovascular History: Reports: Hx Hypercholesterolemia - per prior record, Hx Hypertension, Other Cardiovascular Problems/Disorders - Afib, SVT Denies: Hx Pacemaker/ICD Respiratory History: Reports: Hx Chronic Obstructive Pulmonary Disease (COPD) Denies: Hx Asthma Comment Only: Other Respiratory Problems/Disorders - per prior record GI History: Reports: Hx Diverticulosis, Hx Gastroesophageal Reflux Disease, Hx Obstructive Bowel, Other GI Disorders - Cdiff after bowel resection April 2012 History: Reports: Other Problems/Disorders - HX BLADDER FISTULA Denies: Hx Renal Disease Musculoskeletal History: Reports: Hx Back Problems, Hx Bursitis, Other Musculoskeletal History - back, hip pain Sensory History: Reports: Hx Contacts or Glasses, Hx Hearing Aid, Hx Hearing Problem Comment Only: Hx Deafness - CANTWELL Opthamlomology History: Reports: Hx Contacts or Glasses Neurological History: Reports: Hx Dementia Denies: Hx Headaches, Hx Seizures, Hx Transient Ischemic Attacks (TIA) Comment Only: Other Neuro Impairments/Disorders - per prior record Psychiatric History: Reports: Hx Anxiety, Hx Depression, Hx Suicide Attempt - Previous overdose attempt, Hx of Violent Episodes Against Others Denies: Hx Eating Disorder, Hx Panic Disorder, Hx Substance Abuse Comment Only: Other Psychiatric Issues/Disorders - per prior record - Cancer History Cancer Type, Location and Year: chronic back pain - Surgical History Surgery Procedure, Year, and Place: Lap cholecystectomy 1999, hysterectomy 1956 , bilat hip replacements 2007 & 2008, L uretheral stent 2009, 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 - Immunization History Date of Tetanus Vaccine: unk Date of Influenza Vaccine: unk Infectious Disease History: Reports: Hx Clostridium Difficile Denies: Hx Hepatitis, Hx Human Immunodeficiency Virus (HIV), Hx of Known/ Suspected MRSA, Hx Shingles, Hx Tuberculosis, History Other Infectious Disease - Family History Known Family History: Positive: Other - EtOH abuse - brother - Social History Alcohol Use: None Hx Substance Use: No Substance Use Type: Reports: None Substance Use Comment - Amount & Last Used: Has overdosed on prescription narcotics Hx Tobacco Use: Yes Smoking Status (MU): Former Smoker Type: Cigarettes Amount Used/How Often: 2-3 Cigarettes/day Have You Smoked in the Last Year: No Review of Systems - ROS Summary Review of Systems Summary: LEVEL 5 CAVEAT secondary to AMS, dementia Negative: Fever Positive: Other - CANTWELL Positive: Other - right hip pain All Other Systems Reviewed And Are Negative: No Physical Exam - Summary Physical Exam Summary: VITAL SIGNS: Reviewed. GENERAL: Patient is an elderly female who is lying comfortable in the stretcher. She seems to be confused. Patient is not in any acute respiratory distress. HEAD AND FACE: No signs of trauma. No ecchymosis, hematomas or skull depressions. No sinus tenderness. EYES: PERRLA, EOMI x 2. EARS: Hearing grossly intact. MOUTH: Oropharynx within normal limits. NECK: Supple, trachea is midline, no adenopathy, no JVD, no carotid bruit, no c- spine tenderness, neck with full ROM. No meningeal signs, no Kernig's or brudzinskis signs. CHEST: Symmetric, no tenderness at palpation LUNGS: Clear to auscultation bilaterally. No wheezing or crackles. CVS: Regular rate and rhythm, S1 and S2 present, no murmurs or gallops appreciated. ABDOMEN: Soft, non-tender. No signs of distention. No rebound no guarding, and no masses palpated. Bowel sounds are normal. EXTREMITIES: FROM in all major joints, no edema, no cyanosis or clubbing. NEURO: Alert but not oriented. It seems she has a left side weakness. GCS 14. Unable to perform a Good neurologic exam since she does not follow commands since she seems very confused. SKIN: Dry and warm. Multiple areas of ecchymosis. Triage Information Reviewed: Yes Vital Signs On Initial Exam: Initial Vitals BP 137/93 02/05/17 15:36 Vital Signs Reviewed: Yes Diagnostics - Vital Signs Vital Signs Temp Pulse Resp BP Pulse Ox 02/05/17 16:00 90 23 130/106 95 02/05/17 15:49 99.6 F 99 12 137/93 95 02/05/17 15:38 164 97 02/05/17 15:36 137/93 - Laboratory Result Diagrams: 02/05/17 16:32 02/05/17 16:32 Lab Statement: Any lab studies that have been ordered have been reviewed, and results considered in the medical decision making process. - Radiology CXR Xray Interpretation: No Acute Changes Radiology Interpretation Completed By: Radiologist Right Hip/Pelvis Xray Interpretation: No Acute Changes Radiology Interpretation Completed By: Radiologist - CT Brain CT Interpretation: Positive (See Comments) - SEVERAL LARGE AREAS OF INTRAPARENCHYMAL HEMORRHAGE IN THE RIGHT CEREBRAL HEMISPHERE DESCRIBED WITH ASSOCIATED VASOGENIC EDEMA AND LOCALIZED MASS EFFECT IN ADDITION TO MILD SUBFALCINE HERNIATION TO THE LEFT. INTRAVENTRICULAR HEMORRHAGE IS NOTED WELL. CT Interpretation Completed By: Radiologist C-Spine CT Interpretation: No Acute Changes - PROMINENT CERVICAL SCOLIOSIS AND FOCAL KYPHOSIS WITH C3-C4 ANTEROLISTHESIS. NO ACUTE FINDINGS. UNDERLYING OSTEOARTHRITIS. CT Interpretation Completed By: Radiologist Altered Mental Statu Course/Dx - Course Assessment/Plan: This 81 y/o female presents to ED from [facility] via ambulance with the initial complaint of a fall and right hip pain this afternoon. Per EMT pt's chief and sole complaint was right hip pain. At initial evaluation pt gives inconsistent history and complaints, initially denying any complaints and then reporting "pain all over body and head". PMHx includes left and right hip replacement, HTN, arthritis, dementia, afib, and arthritis. Pt is also reported to be CANTWELL. Blood test are found within normal limits except for WBCs 13.6, K 3 for which she was given KCl IV x 2 runs. CXR no active disease. Hip and pelvis X ray: No acute bony findings. C spine CT: prominent cervical scoliosis and focal Kyphosis with C3-C4 retrolisthesis. No acute findings. Head CT: IMPRESSION: SEVERAL LARGE AREAS OF INTRAPARENCHYMAL HEMORRHAGE IN THE RIGHT CEREBRAL HEMISPHERE DESCRIBED WITH ASSOCIATED VASOGENIC EDEMA AND LOCALIZED MASS EFFECT IN. ADDITION TO MILD SUBFALCINE HERNIATION TO THE LEFT. INTRAVENTRICULAR HEMORRHAGE IS NOTED WELL. . At this time I discussed the case with Dr. Augustine (Neurosurgery) and he recommends admission to the hospitalist and medical management. I was informed by the primary nurse who spoke with the patients daughter who is the Proxy that she is a DNI and DNR and she only wants a medical management. At this time we ordered Kcentra to try to reverse effects of Xarelto. She is hemodynamically stable but with guarded prognosis. I discuss my physical exam, findings and test results with Dr. Joseph from the hospitalist services and she agrees to admit patient to his services. Patient is hemodynamically stable alert and oriented x 3. - Diagnoses Differential Diagnosis/HQI/PQRI: CVA, Overdose, Sepsis, Seizure, TIA, Other Discharge Diagnoses: Hemorrhagic cerebrovascular accident (CVA), Hypokalemia - Provider Notifications Discussed Care Of Patient With: Dr. Joseph (Hospitalist) at [address] Augustine (Neuro Surg) at 1722 PM -- advises against surgery due to multiple comorbidity. Dr. Joseph (Hospitalist) at 1727 PM - Critical Care Time Critical Care Time: 75-104 min Discharge - Discharge Plan Condition: Stable Disposition: ADMITTED TO [facility] Referrals: Oscar Merino MD [Primary Care Provider] - The documentation as recorded by the Pancho lópez Soohyun accurately reflects the service I personally performed and the decisions made by me, Zen Paez MD.
[2017-02-05] MEDS ORDERED: Morphine INJ* 2 MG/ML 1 ML SYRINGE ONE (18:42)
[2017-02-05] MEDS ORDERED: niCARdipine 0.1MG/ML IVPREMIX* 20 MG/200 ML BAG ONE (18:49)
[2017-02-05] MEDS ORDERED: niCARdipine 0.1MG/ML IVPREMIX* 20 MG/200 ML BAG IV SCH ×2 (19:00)
[2017-02-05] MEDS ORDERED: Albuterol 2.5 MG/3 ML NEB.SOL* (0.083%) INH PRN (19:27)
[2017-02-05 19:56] LABS: BUN/Creatinine Ratio 12.7 (8-20); Calcium 8.6 mg/dL (8.6-10.3); EGFR African American 137.1 (>60); EGFR Non-African American 106.6 (>60); Potassium 2.8 mmol/L (3.5-5.0)
--- NOTE | 2017-02-05 19:56 | PN ---
Hospitalist Progress Note 1950 noted patient to be more drowsy and lethargic. In discussion with patient family and daughters they would like her to be comfortable. At this point will stop nicardipine drip, monitoring and will stop labs draw. I have ordered morphine and ativan prn and atropine sl. i have ordered iv keppra as well. I updated my attending with the plan of care. The family has expressed that the patient would not want to live if she could not function independently. I explained that with this ich the patient will have significant neuro deficits and would require correction care most likely. At this point they would like make her mother comfortable.
[2017-02-05] MEDS ORDERED: Pantoprazole IV* 40 MG IV SCH (20:00)
[2017-02-05] MEDS: KCL 10 MEQ/50 ML IVPREMIX* 10 MEQ/50 ML BAG IV SCH (20:09)
[2017-02-05] MEDS: Morphine INJ* 2 MG/ML 1 ML SYRINGE IV PRN ×2 (21:16→23:00)
[2017-02-05 21:46] VITALS: BP 150/64
[2017-02-05] MEDS: LORazepam INJ* 2 MG/ML 1 ML VIAL IV PUSH PRN (23:20)
[2017-02-06] MEDS: Morphine INJ* 2 MG/ML 1 ML SYRINGE IV PRN ×4 (01:29→08:00)
--- NOTE | 2017-02-06 02:29 | HP ---
HISTORY AND PHYSICAL: DATE OF ADMISSION: 02/05/17 PRIMARY CARE PROVIDER: Dr. Merino. ATTENDING PHYSICIAN WHILE IN THE HOSPITAL: Dr. Erika Monet * (report dictated by Carter Rosen, ALFREDO). CHIEF COMPLAINT: Fall. HISTORY OF PRESENT ILLNESS: Ms. Rider is a 81-year-old female patient that comes in to the ER today. When she was walking around her bed, she sustained a fall. She tripped over a piece of furniture that was at the end of her bed. She states that she fell, landed on her right side, and she summoned help. She does not really remember how she summoned help, but she was brought in to the hospital via ambulance. She says that she notices now she is having trouble with vision on her left side and in addition to this, she is also having left arm weakness. She denied any recent changes to her medication. Denied having any syncope with this episode. She said she simply tripped over the end of her bed. She denied any chest pain or any shortness of breath or palpitations prior to or after the event. PAST MEDICAL HISTORY: Significant for: 1. Chronic pain syndrome. 2. Hypertension. 3. Atrial fibrillation, on chronic Xarelto. 4. GERD. 5. SVT. 6. COPD. 7. Dementia. 8. Depression. PAST SURGICAL HISTORY: 1. She has had a total hip replacement. 2. She has had a laparoscopic cholecystectomy. 3. She has had exploratory laparotomy and lysis of adhesions. 4. She has had a hysterectomy. HOME MEDICATIONS: According to the last note that we have include: 1. Robitussin 15 cc every 6 hours as needed. 2. Wellbutrin 300 mg p.o. daily. 3. Amlodipine 5 mg daily. 4. Effexor 150 mg daily. 5. Effexor 75 mg at night. 6. Senna 2 tablets by mouth at bedtime. 7. Xarelto 10 mg daily. 8. Oxycodone 10 mg every 6 hours. 9. Multivitamin 1 tablet daily. 10. Embeda 1 capsule p.o. b.i.d. 11. Remeron 7.5 mg at bedtime. 12. Imodium 2 mg every 4 hours as needed. 13. Systane eye drops left eye at bedtime as needed. 14. Neurontin 300 mg p.o. t.i.d. 15. Neurontin 300 mg at bedtime. 16. Pepcid 20 mg p.o. b.i.d. 17. Aricept 10 mg daily. 18. Diltiazem 240 mg p.o. daily. 19. Vitamin B 1000 mcg p.o. daily. 20. Ventolin 1 puff inhaled every 4 hours as needed. 21. Tylenol 650 mg every 4 hours as needed. 22. Abilify 2 mg p.o. at bedtime. ALLERGIES TO MEDICATIONS: Include CLONIDINE. FAMILY HISTORY: Her mother had a history of CVA. Father has a history of COPD. SOCIAL HISTORY: She is a former smoker. She does not drink alcohol. She lives in [place]. REVIEW OF SYSTEMS: There is no documented fever. She denied having any significant weight change. There was no double vision. There is no ear discharge. She denies having any rhinorrhea. There is no sore throat. There is no thyroid enlargement. She denied having any chest pain. No orthopnea. No nocturnal dyspnea. There is no abdominal pain. No nausea. No vomiting. No dysuria. No frequency. There was no seizure. No loss of consciousness. Review of 14 systems completed, all others negative. PHYSICAL EXAMINATION GENERAL: At this time, Ms. Rider is a 81-year-old female patient. She is sitting in the ER stretcher. She does not appear to be in any acute distress. VITAL SIGNS: Blood pressure 156/116, pulse of 99, respirations 20, O2 sat 98%, and temperature 99.6. HEENT: Head atraumatic. Eyes: Sclerae are anicteric and not pale. Pupils react to light. Throat: Oral mucosa appeared to be dry. No oropharyngeal erythema. NECK: Supple. LUNGS: Clear to auscultation. No wheezes, rales, or rhonchi. HEART: Sounds S1, S2. Regular rate and rhythm. No murmurs, rubs, or gallops. ABDOMEN: Soft, flat, nontender. Bowel sounds present. EXTREMITIES: Pulses 2+ throughout. She cannot move the left upper extremity at this point. She has 5/5 strength on the right side. NEUROLOGIC: She is awake, alert, and oriented x2. She has a weaker rapier insertion loom fixer on the left. She has a left hemianopsia. She has left-sided facial droop. No other gross focal deficits were noted. SKIN: Grossly intact. LABORATORY DATA AND DIAGNOSTIC STUDIES: Reveal of WBC of 13.6, RBC of 4.99, hemoglobin 13.3, hematocrit of 40, platelet count of 204. INR 1.69. Sodium 140 , potassium of 3, chloride of 102, bicarb 29, BUN 8, creatinine 0.61, glucose 107, lactic 1.5, calcium 9.7, magnesium 2.0. Total bili was 0.5, AST 14, ALT 9 , alk phos 48, albumin of 4.1. Urine was obtained with negative toxicology. Positive for opiates. She had a hip/pelvis x-ray, which revealed no acute bony fractures. She had a cervical spine CT, which revealed prominent cervical scoliosis and focal kyphosis with C3-4 anterior listhesis, no acute findings, underlying osteoarthritis. Chest x-ray showed no active disease. She had a brain CT which showed several large areas of intraparenchymal hemorrhage in the right cerebral hemisphere that was described as associated vasogenic edema and localized mass effect in addition to mild subfalcine herniation to the left. Intraventricular hemorrhage is noted as well. Old medical records were reviewed. ASSESSMENT AND PLAN: Ms. Rider is a 81-year-old female patient coming in to the ER today with complaints of fall, found to have severe intracranial hemorrhage. She will be admitted under inpatient status for: 1. Intracranial hemorrhage: The ER did touch base with Dr. Augustine who felt that this was not a surgical case and felt because the risk of surgery at this point outweighed the benefits, so at this point, the hospitalist service was asked to evaluate. The plan, I did discuss frankly with the family that she would most likely deteriorate, requiring life support and intubation. The family said that if that were to happen at this point they would not want to pursue intubation or CPR, so she will be made a DNR/DNI. However, they are interested in pursuing medical management. I did give the patient a dose of Kcentra. I am going to try to keep that blood pressure down to right around 140 with a nicardipine drip. In addition to this, I am going to try to keep her sodium on the higher range of normal, the last one was 140. We will repeat this in a couple of hours and we will see if it is falling, I probably will put her on 3% saline. I have also ordered Keppra for seizure prophylaxis and we will continue to monitor her closely, but at this point, the family's wishes are do not intubate/do not resuscitate, and I did touch base with the patient's healthcare proxy, Brianna. In addition to this, I did speak with Brianna that the patient would most likely not want to end up in a [facility] and I explained to her that given the severity of this fall, she most likely would end up in a [facility] or a subacute long-term care facility, and at this point, Brianna is discussing with her other family the possibility of pursuing comfort measures only. We will continue to again honor the patient's family's wishes as they tell us and I did explain to them that her mortality associated with this condition and the intracranial hemorrhage is almost 100%, and again they are aware of the severity and the chance of acute neurological deterioration. I will the leave the head of bed flat. In addition to this, I did also speak with the cooling room attendant, Dr. Sung. He is in agreement with the plan and I updated him of care and I will also sign out to the general magistrate. 2. Chronic pain: I have ordered p.r.n. morphine. 3. Hypertension: Again, she will be on a nicardipine drip. 4. Atrial fibrillation: Her rate is controlled. Obviously, I have stopped the Xarelto and we have given her Kcentra. We will follow. 5. Gastroesophageal reflux disease: For the time being, we will continue PPI therapy. 6. Chronic obstructive pulmonary disease: I have ordered p.r.n. albuterol. 7. Dementia: Continue with supportive care. 8. Depression: Supportive care. 9. DVT prophylaxis: I have ordered SCDs. TIME SPENT: Critical care time spent on the admission was approximately 90 minutes; greater than half the time was spent [id number] with the patient, other half the time was spent going over the plan of care with the patient and discussing the plan of care with the family and they are in agreement. CARTER ROSEN NP CC: Dr. Merino* [id number]/[facility] #: [id number] [facility]ITAL[facility]ad[facility]
--- NOTE | 2017-02-06 02:29 | HP ---
FULLY REDICTATED HISTORY AND PHYSICAL:* DATE OF ADMISSION: 02/05/17 PRIMARY CARE PROVIDER: Dr. Merino. ATTENDING PHYSICIAN WHILE IN THE HOSPITAL: Dr. Erika Monet* (report dictated by Adam Rosen NP). CHIEF COMPLAINT: Fall. HISTORY OF PRESENT ILLNESS: Ms. Rider is a 81-year-old female patient that comes in to the ER today. She is able to tell me that unfortunately she was walking around her bed. She caught her foot on the end of her bed. She has a piece of furniture that sticks out and she had unfortunately sustained a fall and landed on her right side. She believes she called for 911, she is unsure, but she does reside at [place] and the patient was brought in to the hospital. She states that (DICTATION ENDS ABRUPTLY) ADAM ROSEN NP CC: Dr. Merino* [id number]/[facility] #: [id number] MTDD
[2017-02-06] MEDS ORDERED: LORazepam INJ* 2 MG/ML 1 ML VIAL IV PUSH ONE ×2 (05:00→08:00)
[2017-02-06] MEDS: LORazepam INJ* 2 MG/ML 1 ML VIAL IV PUSH PRN ×2 (05:41→12:38)
[2017-02-06] MEDS ORDERED: Morphine INJ* 2 MG/ML 1 ML SYRINGE IV PRN (08:04)
--- NOTE | 2017-02-06 09:46 | PN ---
Subjective Date of Service: 02/06/17 Interval History: Pt unresponsive to voice or painful stimuli. She is moaning with eyes closed. Per family she was very restless this morning. per daughter she is less responsive today than last night. Prior to this event she was living independently at [facility]. Daughter and son-in-law at bedside. There are 5 siblings altogether, [address] and should be arriving 3pm, and 2 live in [place] and will not be able to travel here. Objective Active Medications: Acetaminophen (Tylenol Supp*) 650 mg PA Q4H PRN PRN Reason: FEVER/PAIN Atropine Sulfate (Atropine 1% (Oral/Sl)*) 2 drop SL Q2H PRN PRN Reason: DISCOMFORT Levetiracetam 1,000 mg/ Sodium (Chloride) 110 mls @ 440 mls/hr IVPB Q12H DAJUAN Last Admin: 02/06/17 08:25 Dose: 440 mls/hr Lorazepam (Ativan Inj*) 1 mg IV PUSH Q4H PRN PRN Reason: ANXIETY Morphine Sulfate (Morphine Inj (Syringe)*) 2 mg IV Q1H PRN PRN Reason: PAIN - MILD Ondansetron HCl (Zofran Inj*) 4 mg IV Q6H PRN PRN Reason: NAUSEA Vital Signs 02/05/17 02/05/17 02/05/17 18:00 18:15 18:16 Temperature 99.6 F Pulse Rate 98 89 89 Respiratory 17 12 12 Rate Blood Pressure 153/87 141/111 (mmHg) O2 Sat by Pulse 97 97 96 Oximetry 02/05/17 02/05/17 02/05/17 18:23 18:24 18:29 Temperature Pulse Rate 87 89 Respiratory 13 13 Rate Blood Pressure 164/74 (mmHg) O2 Sat by Pulse 96 96 Oximetry 02/05/17 02/05/17 02/05/17 18:31 18:41 18:43 Temperature Pulse Rate 91 Respiratory 15 12 Rate Blood Pressure 153/87 157/87 (mmHg) O2 Sat by Pulse 96 Oximetry 02/05/17 02/05/17 02/05/17 18:45 19:00 19:15 Temperature 99.6 F Pulse Rate 90 87 84 Respiratory 13 12 16 Rate Blood Pressure 153/87 154/76 146/71 (mmHg) O2 Sat by Pulse 97 96 96 Oximetry 04/07/1602/05/17 02/05/17 19:30 19:45 20:00 Temperature 98.4 F Pulse Rate 93 80 82 Respiratory 19 13 15 Rate Blood Pressure 145/67 134/61 131/62 (mmHg) O2 Sat by Pulse 95 95 95 Oximetry 02/05/17 02/05/17 02/05/17 20:15 20:30 20:45 Temperature Pulse Rate 83 82 84 Respiratory 14 14 12 Rate Blood Pressure 135/63 125/63 122/49 (mmHg) O2 Sat by Pulse 96 98 97 Oximetry 02/05/17 02/05/17 02/05/17 21:00 21:15 21:16 Temperature Pulse Rate 90 94 Respiratory 15 15 15 Rate Blood Pressure 136/70 132/67 (mmHg) O2 Sat by Pulse 98 97 Oximetry 02/05/17 02/05/17 02/05/17 21:30 22:37 22:52 Temperature 98 F Pulse Rate 90 88 Respiratory 15 16 16 Rate Blood Pressure 150/64 150/64 (mmHg) O2 Sat by Pulse 97 97 Oximetry 02/05/17 02/05/17 02/06/17 23:00 23:20 00:00 Temperature Pulse Rate Respiratory 18 16 16 Rate Blood Pressure (mmHg) O2 Sat by Pulse Oximetry 02/06/17 02/06/17 02/06/17 00:20 01:29 02:29 Temperature Pulse Rate Respiratory 18 16 16 Rate Blood Pressure (mmHg) O2 Sat by Pulse Oximetry 02/06/17 02/06/17 02/06/17 03:30 04:00 04:30 Temperature Pulse Rate Respiratory 20 18 18 Rate Blood Pressure (mmHg) O2 Sat by Pulse Oximetry 02/06/17 02/06/17 02/06/17 05:00 05:41 06:41 Temperature Pulse Rate Respiratory 18 18 16 Rate Blood Pressure (mmHg) O2 Sat by Pulse Oximetry 02/06/17 02/06/17 02/06/17 08:00 08:25 09:00 Temperature Pulse Rate Respiratory 20 20 20 Rate Blood Pressure (mmHg) O2 Sat by Pulse Oximetry Oxygen Devices in Use Now: None Appearance: 81 yo female laying in bed with eyes closed, moaning Eyes: No Scleral Icterus, PERRLA Respiratory: Clear to Auscultation Cardiovascular: No Edema, - - irregularly irregular Abdominal: NL Sounds; No Tenderness; No Distention Neurological: - Lines/Tubes/Other Access: Clean, Dry and Intact Peripheral IV Result Diagrams: 02/05/17 16:32 02/05/17 19:22 Assess/Plan/Problems-Billing Assessment: Ms. Rider is a 81 yo female with a PMH of afib on xarelto, chornic pain syndrome, dementia, COPD, HTN who presented to the ED on 02/05 with c /o falls found to have Intracranial hemorrhage who received Kcentra, who is now on comfort care. - Patient Problems (1) Need for comfort care Comment: - pt requiring frequent IV morphine, plan to start morphine SL 5 mg Q1hr, pt has a long hx of chronic opioid use, it is possible she may require an IV gtt but will increase dose and frquency now and re-evaluate in a few hours. Continue ativan, atropine gtts prn - palliative consult pending (2) ICH (intracerebral hemorrhage) Comment: - per CT Brain "several large areas of intraparenchymal hemorrhage in the right cerebral hemisphere with associated vasogenic serenity,a and localized mass effect in addition to mild subfalcine herniation to the left. Intraventricular hemorrhage is noted". (3) Chronic pain syndrome Comment: - hx of long-term opioid use (4) DNR (do not resuscitate) Status and Disposition: Inpatient with ICH, now on comfort care. Palliative consult pending.
[2017-02-06] MEDS ORDERED: Morphine INJ* 4 MG/ML 1 ML SYRINGE IV ONE (10:30)
[2017-02-06] MEDS: Morphine ORAL CONCENTRATE* 5 MG/0.25 ML ORAL.SYRIN SL PRN ×11 (10:59→22:48)
[2017-02-06] MEDS: LORazepam TAB(*) 1 MG SL PRN ×5 (14:29→22:06)
--- NOTE | 2017-02-06 22:04 | CONS ---
PALLIATIVE CARE CONSULTATION REPORT: DATE OF CONSULT: 02/06/17 PRIMARY CARE PHYSICIAN: Oscar Merino MD REQUESTING PHYSICIAN FOR CONSULTATION: Cristina Escobar NP REASON FOR CONSULTATION: Comfort care measures, goals of care. HOSPITAL COURSE: This is a 81-year-old female with a past medical history of dementia; chronic pain; atrial fibrillation, on Xarelto who presented to the emergency room after having a mechanical fall. On evaluation in the emergency room, the patient was shown to have several large areas of intraparenchymal hemorrhage in the right cerebral hemisphere that was described as associated with vasogenic edema and localized mass affect in addition to mild subfalcine herniation to the left. Intraventricular hemorrhage was noted as well. Neurosurgery was consulted, who felt this was not a surgical case and felt because the risk of surgery at this point outweigh the benefits, the hospitalist service was asked to evaluate and admit. The patient was made DNR/ DNI on admission and they were interested in pursuing medical management and the patient was given a dose of Kcentra and seizure prophylaxis. It was relayed to the family that the prognosis was grim and she would not likely survive this. The headstart teacher, Dr. Sung, was also updated regarding patient' s clinical status. On admission, the patient was awake, alert and oriented x2 but on my encounter, the patient has rapidly deteriorated. At that evening of admission, the patient was noted to be more drowsy and lethargic. At that point , the family wants to make her comfortable and morphine and Ativan was started as needed. On my encounter, the family is the daughter and the son-in-law and another family member at the bedside and they are aware that the patient will have no chance of any meaningful recovery. Early this morning, she seemed to be more agitated and restless and she required higher doses of morphine and Ativan which have seemed to calm her more and she is resting comfortably. Their concern is that she has been thrashing around and on my encounter, I did see some spontaneous movement of her right upper extremity. No other signs of obvious discomfort. Unable to obtain review of systems due to the patient's altered mental status. PAST MEDICAL HISTORY: 1. Chronic pain syndrome. 2. Hypertension. 3. Atrial fibrillation, on Xarelto. 4. GERD. 5. History of SVT. 6. COPD. 7. Mild dementia. 8. Depression. INPATIENT MEDICATIONS: 1. Tylenol 650 mg per rectum every 4 hours as needed. 2. Atropine 2 drops sublingual q.2 as needed. 3. Keppra 1000 mg IV b.i.d. 4. Ativan 1 mg IV q.4 hours. 5. Morphine 5 mg sublingual every 1 hour. 6. Zofran 4 mg every 6 hours. ALLERGIES: CLONIDINE. FAMILY HISTORY: Mother has a history of CVA. Father, history of COPD. SOCIAL HISTORY: The patient is a former smoker. No alcohol use. She resides at the independent living facility at [facility]. Her healthcare proxy is her daughter, Ting, who lives in [place], who is currently on her way driving here. MOLST form is a DNR/DNI, comfort measures. REVIEW OF SYSTEMS: Unable to obtain. PHYSICAL EXAMINATION: Vital Signs: Temp 98, respiratory rate is 20, blood pressure not obtained. General: No acute distress, somnolent, unable to arouse. Family member is at the bedside. HEENT: Neck is supple. Mucous membranes dry. The patient appears diaphoretic. Pupils are pinpoint and nonreactive. Cardiac: Regular rate and rhythm. No murmurs, rubs, or gallops. Diminished breath sounds. No wheezing, rhonchi or rales. Abdomen: Soft, nontender, nondistended. Extremities: No clubbing, cyanosis, edema. Neurologic : The patient is somnolent, unable to arouse. She does have spontaneous movement of her right upper extremity. RADIOGRAPHIC DATA: Several large areas of intraparenchymal hemorrhage in the right cerebral hemisphere as described with associated vasogenic edema, localized mass effect in addition to mild subfalcine herniation to the left, intraventricular hemorrhage is noted as well. ASSESSMENT: This is a 81-year-old female with past medical history of atrial fibrillation, on Xarelto; dementia who presented to the emergency room after having a mechanical fall, found to have significant intracranial hemorrhage with edema, midline shift and mild herniation, now unresponsive. All the family members are in agreement to keeping the patient comfortable and comfort measures only and managing her symptoms with morphine and Ativan as needed. We have been generously titrating her medications to keep her comfortable, which I agree with. The rest of the family members are driving en route currently. I discussed her limited life expectancy without taking any hydration or nutrition and discussed if her pain can be stabilized that I would recommend [facility] if [facility] a bed available. I will follow up with Jessy , our social professionals, to look into this and talk to the family for bereavement support as well. PATIENT TIME: Greater than 60 minutes spent doing the consultation, more than half time was spent in direct patient contact. CC: Oscar Merino MD * [id number]/CPS #: [id number] [place]adise
[2017-02-06] MEDS ORDERED: Morphine PCA ADULT* 5 MG/ML 30 ML PCA SCH (23:45)
--- NOTE | 2017-02-07 17:05 | PN ---
Subjective Date of Service: 02/07/17 Interval History: Patient was started on a morphine gtt last night, per [facility] has been much more comfortable. She has been mostly unresponsive today, per family she did open her eyes when she was turned for bathing and yelled out in pain but she did not respond to family verbally or make eye contact. Objective Active Medications: Acetaminophen (Tylenol Supp*) 650 mg TN Q4H PRN PRN Reason: FEVER/PAIN Atropine Sulfate (Atropine 1% (Oral/Sl)*) 2 drop SL Q2H PRN PRN Reason: DISCOMFORT Morphine Sulfate (Morphine Locks Inspector Adult* 5 Mg/Ml) 30 mls @ 0 mls/hr ARTIST CONSULTANT .change Q24H DAJUAN; Per Protocol PRN Reason: Protocol Last Admin: 02/07/17 00:28 Dose: 0.4 mls/hr Lorazepam (Ativan Inj*) 1 mg IV PUSH Q4H PRN PRN Reason: ANXIETY Last Admin: 02/06/17 12:38 Dose: 1 mg Lorazepam (Ativan Tab(*)) 2 mg SL Q2HR PRN PRN Reason: AGITATION Last Admin: 02/06/17 22:06 Dose: 2 mg Ondansetron HCl (Zofran Inj*) 4 mg IV Q6H PRN PRN Reason: NAUSEA Vital Signs 02/06/17 02/06/17 02/06/17 18:43 19:43 19:48 Pulse Rate Respiratory 20 28 28 Rate Blood Pressure (mmHg) O2 Sat by Pulse Oximetry 02/06/17 02/06/17 02/06/17 20:00 20:43 20:46 Pulse Rate Respiratory 25 23 23 Rate Blood Pressure (mmHg) O2 Sat by Pulse Oximetry 02/06/17 02/06/17 02/06/17 21:43 21:48 21:58 Pulse Rate Respiratory 23 23 23 Rate Blood Pressure (mmHg) O2 Sat by Pulse Oximetry 02/06/17 02/06/17 02/07/17 22:06 22:48 00:28 Pulse Rate Respiratory 23 23 23 Rate Blood Pressure (mmHg) O2 Sat by Pulse Oximetry 02/07/17 02/07/17 02/07/17 00:42 01:02 02:02 Pulse Rate 88 Respiratory 23 23 20 Rate Blood Pressure 150/64 (mmHg) O2 Sat by Pulse 97 94 94 Oximetry 02/07/17 02/07/17 02/07/17 03:02 04:02 07:24 Pulse Rate Respiratory 20 19 Rate Blood Pressure (mmHg) O2 Sat by Pulse 93 93 98 Oximetry 02/07/17 08:00 Pulse Rate Respiratory 20 Rate Blood Pressure (mmHg) O2 Sat by Pulse Oximetry Oxygen Devices in Use Now: None Appearance: 81 eldelry female laying in bed resting with eyes closed unresponsive to verbal or gentle physical stimuli Eyes: PERRLA Respiratory: - - coarse rhonchi throughout, no resp distress noted Cardiovascular: - - irregularly irregular Neurological: - - unresponsive, no distress noted Lines/Tubes/Other Access: Clean, Dry and Intact Peripheral IV Result Diagrams: 02/05/17 16:32 02/05/17 19:22 Assess/Plan/Problems-Billing Assessment: Ms. Rider is a 81 yo female with a PMH of afib on xarelto, chornic pain syndrome, dementia, COPD, HTN who presented to the ED on 02/05 with c /o falls found to have Intracranial hemorrhage who received Kcentra, who is now on comfort care. - Patient Problems (1) Need for comfort care Comment: - Morphine gtt, Continue ativan, atropine gtts prn - palliative following. Pt [facility], ok to go on morphine gtt. Plan to re-evaluate in morning. (2) ICH (intracerebral hemorrhage) Comment: - per CT Brain "several large areas of intraparenchymal hemorrhage in the right cerebral hemisphere with associated vasogenic serenity,a and localized mass effect in addition to mild subfalcine herniation to the left. Intraventricular hemorrhage is noted". (3) Chronic pain syndrome Comment: - hx of long-term opioid use (4) DNR (do not resuscitate) Status and Disposition: Inpatient with ICH, now on comfort care. Palliative following. Possible DC to [facility] residence tomorrow if isnt felt to be immanent.
[2017-02-07] MEDS: LORazepam TAB(*) 1 MG SL PRN ×2 (18:20→20:28)
[2017-02-07] MEDS: Atropine 1% (ORAL/SL)* 15 ML BTL SL PRN ×2 (20:27→21:57)
[2017-02-07] MEDS: LORazepam INJ* 2 MG/ML 1 ML VIAL IV PUSH PRN (23:14)
[2017-02-08] MEDS: Atropine 1% (ORAL/SL)* 15 ML BTL SL PRN ×21 (00:32→19:25)
[2017-02-08] MEDS: LORazepam TAB(*) 1 MG SL PRN ×12 (01:09→19:24)
[2017-02-08] MEDS: LORazepam INJ* 2 MG/ML 1 ML VIAL IV PUSH PRN (03:34)
[2017-02-08] MEDS ORDERED: Morphine ORAL CONCENTRATE* 5 MG/0.25 ML ORAL.SYRIN SL PRN ×2 (09:29→09:55)
[2017-02-08] MEDS ORDERED: Scopolamine 1.5 mg* PATCH TRANSDERM SCH (10:00)
--- NOTE | 2017-02-08 10:07 | PN ---
Progress Note - Progress Note Note: Palliative care follow up note: 3 sisters and friend in the room. Per family patient very agitated and uncomfortable. They are tearful and do not want her to have another night like she did last night and may be willing to transport her to residence if it means she won't have another difficulty night. Patient seems more comfortable currently but they fear she is going to start getting more restless and agitated. We discussed at length that the drip may prolong her life and they worry about this. We discussed transitioning her to oral high concentration morphine and scopolamine patch as well. We are going to reassess once we transition to oral morphine and decide if family is comfortable keeping her here as I am concerned she will not survive transport to the residence. I except her life expectancy is less than 24 hours. I will follow up with her and reassess the situation. If she were to stay here another night, I will sign out to evening provider. Total patient time spent with family, patient, staff including Dr. Mathur: 60 minutes.
[2017-02-08] MEDS: Morphine ORAL CONCENTRATE* 5 MG/0.25 ML ORAL.SYRIN SL PRN ×8 (10:17→19:24)
[2017-02-08] MEDS ORDERED: Oxymetazoline 0.05% NASAL SPR* 15 ML BTL BOTH NARES PRN (11:27)
--- NOTE | 2017-02-08 11:37 | PN ---
Subjective Date of Service: 02/08/17 Interval History: Family reports the patient had a "rough night" feeling that her pain and discomfort wasnt well controlled. Meeting with Dr. Ortiz today and the decision was made to wean off gtt and start a higher dose oral morphine. Holding transfer to [facility]osp[facility] residence at this time with plan to reassess this afternoon. Per family she has been unresponsive with moaning only. Objective Active Medications: Acetaminophen (Tylenol Supp*) 650 mg MS Q4H PRN PRN Reason: FEVER/PAIN Atropine Sulfate (Atropine 1% (Oral/Sl)*) 2 drop SL Q30M PRN PRN Reason: INCREASED SECRETIONS Last Admin: 02/08/17 11:19 Dose: 2 drop Lorazepam (Ativan Inj*) 1 mg IV PUSH Q4H PRN PRN Reason: ANXIETY Last Admin: 02/08/17 03:34 Dose: 1 mg Lorazepam (Ativan Tab(*)) 2 mg SL Q1HR PRN PRN Reason: AGITATION Last Admin: 02/08/17 11:20 Dose: 2 mg Morphine Sulfate (Morphine Oral Concentrate*) 10 mg SL Q1HR PRN PRN Reason: PAIN Ondansetron HCl (Zofran Inj*) 4 mg IV Q6H PRN PRN Reason: NAUSEA Oxymetazoline HCl (Afrin 0.05% Nasal [place]*) 2 spray BOTH NARES Q2HR PRN PRN Reason: CONGESTION Stop: 02/10/17 11:26 Pharmacy Profile Note (Scopolomine Patch Remove*) 1 note PATCH OFF Q72H DAJUAN Scopolamine (Transderm-Scop 1.5 Mg Patch*) 1 patch TRANSDERM Q72H DAJUAN Last Admin: 02/08/17 10:45 Dose: 1 patch Vital Signs 02/07/17 02/07/17 02/07/17 17:11 18:20 18:30 Pulse Rate Respiratory 20 20 Rate O2 Sat by Pulse 98 Oximetry 02/07/17 02/07/17 02/07/17 20:00 20:20 20:28 Pulse Rate Respiratory 24 24 22 Rate O2 Sat by Pulse Oximetry 02/07/17 02/07/17 02/07/17 21:46 22:28 23:14 Pulse Rate 118 Respiratory 36 30 36 Rate O2 Sat by Pulse 88 Oximetry 02/08/17 02/08/17 02/08/17 00:28 01:09 02:44 Pulse Rate Respiratory 24 24 22 Rate O2 Sat by Pulse Oximetry 02/08/17 02/08/17 02/08/17 03:09 03:34 04:34 Pulse Rate Respiratory 24 24 24 Rate O2 Sat by Pulse Oximetry 02/08/17 02/08/17 02/08/17 04:51 06:51 07:14 Pulse Rate Respiratory 22 16 16 Rate O2 Sat by Pulse Oximetry 02/08/17 02/08/17 02/08/17 07:24 09:14 09:21 Pulse Rate Respiratory 12 20 20 Rate O2 Sat by Pulse Oximetry 02/08/17 02/08/17 02/08/17 10:17 10:20 11:19 Pulse Rate Respiratory 20 20 16 Rate O2 Sat by Pulse Oximetry 02/08/17 11:20 Pulse Rate Respiratory 16 Rate O2 Sat by Pulse Oximetry Oxygen Devices in Use Now: None Appearance: eldelry female unresponsive with apneic breathing, appears slightly mottled. Eyes: PERRLA Respiratory: - - coarse rhonchi b/l Cardiovascular: - - tachycardiac irreegualry irregular Lines/Tubes/Other Access: Clean, Dry and Intact Peripheral IV Result Diagrams: 02/05/17 16:32 02/05/17 19:22 Microbiology and Other Data: Microbiology 02/08/17 01:05 Nasal Screen MRSA (PCR)(DELMA) - Final Nasal Mrsa Negative Assess/Plan/Problems-Billing Assessment: Ms. Rider is a 81 yo female with a PMH of afib on xarelto, chornic pain syndrome, dementia, COPD, HTN who presented to the ED on 02/05 with c /o falls found to have Intracranial hemorrhage who received Kcentra, who is now on comfort care. - Patient Problems (1) Need for comfort care Comment: - Morphine gtt with plan to tranfer to oral morphine at a higher dose than prior. - Continue ativan, atropine gtts prn, scolpolomine patch. - palliative following. Pt has been offered a bed [facility] but at this time worried patient may in transfer. Family wanted to transition to oral morphine with plan to reassess. They are discussing as a family if they want to take the risk of dying in transport vs. keeping the patient here overnight - to be determined at this time. (2) ICH (intracerebral hemorrhage) Comment: - per CT Brain "several large areas of intraparenchymal hemorrhage in the right cerebral hemisphere with associated vasogenic serenity,a and localized mass effect in addition to mild subfalcine herniation to the left. Intraventricular hemorrhage is noted". (3) Chronic pain syndrome Comment: - hx of long-term opioid use (4) DNR (do not resuscitate) Status and Disposition: Inpatient with ICH, now on comfort care. Palliative following. DC to [facility]osp[facility] residence is on hold at this time.
--- NOTE | 2017-02-08 20:52 | PN ---
Progress Note - Progress Note Note: Nursing called re: Family is present and dissatisfied with changes made earlier in the day as Mrs Rider is currently experiencing respiratory distress and in moderate to severe accessory muscle use. She is comatose and unresponsive, but certainly struggling. We discussed options. My recommendation was to return to the morphine GTT at 10mg initial bolus & 10mg/hr as her previous dose on the GTT was 6mg. They were concerned the potential of the fluid from the AERIAL PHOTOGRAPHER extending her passing. I spoke with pharmacy & the volume of fluid delivered with morphine AERIAL PHOTOGRAPHER at 10mg/hr is only 2cc/hr and will not prolong passing or prevent dehydration. Additionally, family was advised that the side effect of respiratory depression from morphine will far more likely expedite her passing. They are in agreement with this change and were advised to inform the nurse if Mrs Rider was not yet comfortable 1hour after initiation of the pump and will will titrate it up aggressively to obtain a satisfactory comfort level. Questions were sought and answered to their satisfaction.
[2017-02-08] MEDS ORDERED: Morphine PCA ADULT* 5 MG/ML 30 ML PCA SCH (21:00)
[2017-02-08] MEDS ORDERED: Oxymetazoline 0.05% NASAL SPR* 15 ML BTL BOTH NARES SCH (21:00)
--- NOTE | 2017-02-09 05:48 | DS ---
Date of Admission: 02/05/2017 Date of Discharge: 02/08/2019 Discharge Diagnoses intracranial hemorrhage HPI Ms. Rider is a 81-year-old female patient that comes in to the ER today. When she was walking around her bed, she sustained a fall. She tripped over a piece of furniture that was at the end of her bed. She states that she fell, landed on her right side, and she summoned help. She does not really remember how she summoned help, but she was brought in to the hospital via ambulance. She says that she notices now she is having trouble with vision on her left side and in addition to this, she is also having left arm weakness. She denied any recent changes to her medication. Denied having any syncope with this episode. She said she simply tripped over the end of her bed. She denied any chest pain or any shortness of breath or palpitations prior to or after the event. Hospital Course Mrs Rider was admitted with an ICH able to communicate. Medical management was undertaken as no surgical option existed. Despite this she decompensated rapidly, becoming more lethargic with worsening debility. Given this, her family made the decision to switch the goal of care to comfort-only later on the day of admission. She stabilized into a coma GCS 3 until passing 02/08/2017 at 2100. Time for Discharge: 40minutes
[2017-02-11] MEDS ORDERED: Scopolomine PATCH Remove* 1 NOTE MISC PATCH OFF SCH (10:00)
== END 2017-02-08 21:00 | disposition expired | DRG 85 ==
LOC: ED 15:26 → ICU 17:53 → MED 22:06
PROVIDERS: ADMIT Internal Medicine; ATTEND Internal Medicine
PROC: 30283B1 Transfusion of Nonautologous 4-Factor Prothrombin Complex Concentrate into Vein, Percutaneous Approach (ICD-10-PCS; principal; 2017-02-05)
DX: S06.340A Traumatic hemorrhage of right cerebrum without loss of consciousness, initial encounter (principal); S06.1X0A Traumatic cerebral edema without loss of consciousness, initial encounter; G93.5 Compression of brain; F03.90 Unspecified dementia, unspecified severity, without behavioral disturbance, psychotic disturbance, mood disturbance, and anxiety; I48.91 Unspecified atrial fibrillation; I10 Essential (primary) hypertension; F32.9 Major depressive disorder, single episode, unspecified; G83.24 Monoplegia of upper limb affecting left nondominant side; H53.47 Heteronymous bilateral field defects; Z96.643 Presence of artificial hip joint, bilateral; M19.90 Unspecified osteoarthritis, unspecified site; Z88.8 Allergy status to other drugs, medicaments and biological substances; E78.00 Pure hypercholesterolemia, unspecified; J44.9 Chronic obstructive pulmonary disease, unspecified; K21.9 Gastro-esophageal reflux disease without esophagitis; H91.90 Unspecified hearing loss, unspecified ear; Z97.4 Presence of external hearing-aid; F41.9 Anxiety disorder, unspecified; Z90.710 Acquired absence of both cervix and uterus; Z87.891 Personal history of nicotine dependence; Z66 Do not resuscitate; G89.4 Chronic pain syndrome; Z82.3 Family history of stroke; Z82.5 Family history of asthma and other chronic lower respiratory diseases; R29.810 Facial weakness; Z51.5 Encounter for palliative care; W18.09XA Striking against other object with subsequent fall, initial encounter; Y92.9 Unspecified place or not applicable; M41.9 Scoliosis, unspecified; R40.2434 Glasgow coma scale score 3-8, 24 hours or more after hospital admission
CPT/HCPCS: 36415; 70450; 71010; 72125; 80048; 80053; 80307; 80320; 80329; 81003; 82140; 82550; 83605; 83735; 84443; 84484; 85025; 85610; 87040; 87641; 94760; A9270-GY; C9132; G0480; J2060; J2270; J3480